=== PATIENT | female | born 1935 | race Caucasian/White ===

== ENCOUNTER → 2020-01-12 | Outpatient (CLI) | payer MEDICARE, BC ==
[2019-10-31 11:11] VITALS: BP 144/65
[~2020-01-12] MED LIST: ALPR0.5T PO; ALPR0.5T6 PO; ASPI-630 PO; ATOR10TA60 PO; BUPR150T11 PO; BUPR150T8 PO; CEFD300C PO; CELE100C PO; CITA10TA4 PO; CITA10TA8 PO; CYCL1DRO EACHEYE; DOCU100C28 PO; DONE23TA PO; LACT1CAP19 PO; LEVO112T49 PO; LEVO75TA5 PO; LIGH1DRO EACHEYE; LISI-338 PO; MAGN400O7 PO; METO25TA4 PO; METR500T PO; MICO14CR TP; MIRA50TA PO; MONT10TA49 PO; NORT25CA PO; NYST60PO TP; ONDA4TAB7 PO; POLY17PO28 PO; PROM25TA10 PO; PROP15DR EACHEYE; QUET50TA5 PO; SOLI10TA2 PO
== END ==
LOC: SURG 12:14 → SURGPAT 12:22 → EDSTATUS 01-15 12:00
PROVIDERS: ATTEND Internal Medicine Gastroenterology
DX: Z01.818 Encounter for other preprocedural examination (principal); Z11.59 Encounter for screening for other viral diseases; R10.84 Generalized abdominal pain
CPT/HCPCS: 36415; 87635

== ENCOUNTER → 2020-01-15 | Day surgery (SDC) | payer MEDICARE, BC ==
[~2020-01-15] MED LIST changes: +IV RINGERS,LACTATED 1000ML 1,000 ML IV SCH; +PROPOFOL 10 MG/ML (20ML) VIAL. IV ONE
[2020-01-15 13:09] VITALS: BP 146/69
--- NOTE | 2020-01-15 13:45 | HP ---
ADMIT DATE: UPDATED HISTORY AND PHYSICAL REASONS FOR EVALUATION: Abdominal pain and diarrhea. HISTORY OF PRESENT ILLNESS: An 84-year-old female with past medical history which is significant for diverticulosis, anxiety, myocardial infarction, hypothyroidism, is seen with persistent abdominal pain involving the entire abdomen associated with difficulties with evacuation. CT scan did reveal diverticular disease and possible stricture. MiraLax has been unhelpful but milk of magnesia has improved with her strain. With continued issues since completing the antibiotic, she requests additional evaluation. PAST MEDICAL HISTORY: Diverticulitis, palpitations, myocardial infarction, hypothyroidism, and skin cancer. ALLERGIES: SULFA. MEDICATIONS: Xanax, aspirin, atorvastatin, Wellbutrin, cefdinir, Celexa, cyclosporine eyedrops, benazepril, lactobacillus, levothyroxine, lisinopril, magnesium, metronidazole, nystatin, and Zofran. FAMILY AND SOCIAL HISTORY: Significant for breast cancer with her mother, myocardial infarction with her father. PAST SURGICAL HISTORY: She has joint replacement, breast surgery, coronary artery bypass grafting, hysterectomy, ____ surgery, and eye surgery. REVIEW OF SYSTEMS: Per records. PHYSICAL EXAMINATION: GENERAL: Reveals a well-nourished, well-developed female, who is alert, cooperative, in mild distress. VITAL SIGNS: Temperature 97.7, pulse 94, respirations 22. LUNGS: Clear. CARDIOVASCULAR: Reveals S1 and S2 without S3, S4, or appreciable murmur. ABDOMEN: Reveals a soft abdomen, normal bowel sounds, without appreciable hepatosplenomegaly. EXTREMITIES: Reveals no cyanosis, clubbing, or edema. IMPRESSION AND PLAN: Abdominal pain with diarrhea and diverticular disease. Differential includes inflammatory bowel disease, ischemic colitis with stricture, diverticular stricture, and colon cancer. Therefore, I recommend a colonoscopy to further assess. Risks and benefits have been discussed with the patient including risk of hemorrhage and perforation and she is willing to proceed. If this is unhelpful, then consideration to Colorectal Surgery evaluation for possible rectocele and pelvic floor dyssynergia with a sitz marker study may be pursued. TI ZELAYA MD DR: CAITY/yossi JOB#: [id number] / [id number]
--- NOTE | 2020-01-19 13:07 | PATHOLOGY ---
[facility] Accession Number: [id number] . 01 Material submitted: . colon - RANDOM COLON BX . 01 Clinical history: . Diarrhea . 02 Diagnosis: Colonic mucosa, random colon biopsies: - No significant pathologic abnormalities. (JPM:ozzy; 01/19/2020) S 01/19/2020 0929 Local . 02 Comment: Sections of the random colon biopsy reveal multiple segments of colonic mucosa containing a few mucosal-associated lymphoid aggregates. There is no evidence of a chronic destructive colitis, lymphocytic colitis, or collagenous colitis. (JPM:ozzy; 01/19/2020) . 02 Electronically signed: . Víctor Chong MD, Pathologist NPI- [id number] . 01 Gross description: . The specimen is received in formalin, labeled "Vangie, Melly, random colon BX" and consists of multiple fragments of pruitt tissue measuring 1.7 x 0.7 x 0.2 cm in aggregate which is entirely submitted in A1. ([facility]; 01/16/2020) JFQ/JFQ 01/16/2020 1448 Local . 02 Pathologist provided ICD-10: R19.7 . 02 CPT . 434706 Specimen Comment: A courtesy copy of this report has been sent to [phone], [phone] Specimen Comment: [id number] Specimen Comment: Report sent to / DR MOTA Specimen Comment: A duplicate report has been generated due to demographic updates. Performed at: 01 [facility] [address] [address], [place] [id number] MD Salbador Pruitt MD Phone: [phone] Performed at: 02 [facility] [address] [place], [place] [id number] MD Víctor Chong MD Phone: [phone]
== END ==
LOC: SURG 10:56
PROVIDERS: ATTEND Internal Medicine Gastroenterology
DX: K52.9 Noninfective gastroenteritis and colitis, unspecified (principal); K57.30 Diverticulosis of large intestine without perforation or abscess without bleeding; K64.0 First degree hemorrhoids; I25.2 Old myocardial infarction; E03.9 Hypothyroidism, unspecified; Z85.828 Personal history of other malignant neoplasm of skin; Z88.1 Allergy status to other antibiotic agents; Z95.1 Presence of aortocoronary bypass graft; Z90.710 Acquired absence of both cervix and uterus
CPT/HCPCS: 45380; 88305; J2704

== ENCOUNTER 2020-06-04 13:39 | Inpatient (IN) | payer MEDICARE, BC ==
[~2020-06-04] VITALS: Ht 162.6 cm; Wt 110.0 kg
[~2020-06-04 13:39] MED LIST changes: -IV RINGERS,LACTATED 1000ML 1,000 ML IV SCH; -PROPOFOL 10 MG/ML (20ML) VIAL. IV ONE
[2020-06-04] MEDS ORDERED: DILTIAZEM HCL 125 MG in IV NORMAL SALINE 100ML 100 ML IV ONE (14:00)
[2020-06-04] MEDS ORDERED: dilTIAZem IV PUSH 25 MG/5 ML VIAL IVP ONE (14:00)
--- NOTE | 2020-06-04 14:01 | PHYS DOC ---
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 She was in her doctor's office when she suddenly had chest pain and palpitations. They report her heart rate was in the 170s. They report normal blood pressure. Upon EMS arrival the patient's pain had improved. EMS brings her in for evaluation. Currently her pain is almost entirely resolved and she is resting comfortably in examination room. She has a history of chronic dementia and has some difficulty answering about her medical history. Past medical history: Anxiety depression constipation hyperlipidemia coronary artery disease hypothyroidism Past medical history: She has a history of a cholecystectomy and CABG and reports knee surgery. Review of systems is negative for abdominal pain diaphoresis vomiting fevers chills or headache. All other review of systems negative. ED course: 84-year-old female presenting with chest pain found to be in A. fib with RVR. Diltiazem bolus and drip ordered. This is new A. fib for the patient, no record of her having history of A. fib in her chart. She is not on blood thinners. Patient converted after diltiazem bolus. She still has a mild amount of chest pain. We will admit her for serial troponins and cardiac consultation. Heart Score: HEART Score for Chest Pain: HEART Score for Chest Pain Response (Comments) Value History Moderately Suspicious 1 ECG Nonspecific Repolarizatio 1 Age > 65 2 Risk Factors 1 or 2 Risk Factors 1 Troponin < Normal Limit 0 Total 5 Risk Factors: Risk Factors: DM, Current or recent (<one month) smoker, HTN, HLP, family history of CAD, obesity. Risk Scores: Score 0 - 3: 2.5% MACE over next 6 weeks - Discharge Home Score 4 - 6: 20.3% MACE over next 6 weeks - Admit for Clinical Observation Score 7 - 10: 72.7% MACE over next 6 weeks - Early Invasive Strategies Current Medications: Current Medications Medications (Trade) Dose Ordered Sig/Carlos Start Time Stop Time Status Last Admin Dose Admin Diltiazem HCl (Cardizem Iv Push) 10 mg 1X ONCE 06/04/20 14:00 06/04/20 14:01 Diltiazem HCl 125 mg/Sodium Chloride 125 ml @ 5 mls/hr 1X ONCE 06/04/20 14:00 06/05/20 14:59 Allergies: Allergies: Allergies Coded Allergies Type Severity Reaction Last Updated Verified Sulfa (Sulfonamide Antibiotics) Allergy Mild Rash 01/15/20 Yes Physical Exam: PE: Constitutional: Well developed, well nourished, no acute distress, non-toxic appearance. [] HENT: Normocephalic, atraumatic, bilateral external ears normal, oropharynx moist, no oral exudates, nose normal. [] Eyes: PERRLA, EOMI, conjunctiva normal, no discharge. [] Neck: Normal range of motion, no tenderness, supple, no stridor. [] Cardiovascular: Tachycardic with an irregularly irregular rhythm. No murmur. Lungs & Thorax: Bilateral breath sounds clear to auscultation [] Abdomen: Bowel sounds normal, soft, no tenderness, no masses, no pulsatile masses. [] Skin: Warm, dry, no erythema, no rash. [] Back: No tenderness, no CVA tenderness. [] Extremities: No tenderness, no cyanosis, no clubbing, ROM intact, no edema. [] Neurologic: Alert and oriented X 3, normal motor function, normal sensory function, no focal deficits noted. [] Psychologic: Affect normal, judgement normal, mood normal. [] EKG: EKG: [] Radiology/Procedures: Radiology/Procedures: [] Course & Med Decision Making: Course & Med Decision Making Pertinent Labs and Imaging studies reviewed. (See chart for details) [] Dragon Disclaimer: Dragon Disclaimer: This electronic medical record was generated, in whole or in part, using a voice recognition dictation system. Departure Departure Impression: Primary Impression: Atrial fibrillation with RVR Additional Impression: Chest pain Disposition: ADMITTED INPATIENT Condition: STABLE Referrals: DEREK MOTA MD (PCP) Justicifation of Admission Dx: Justifications for Admission: Justification of Admission Dx: Yes Comments: A. fib RVR NILES SIMON MD Jun 04, 2020 14:01
[2020-06-04 14:10] LABS: BASO # 0.1 x10^3/uL (0.0-0.2); BASO % 1 % (0-3); EOS # 0.2 x10^3/uL (0.0-0.7); EOS % 2 % (0-3); HEMATOCRIT 46.4 % (36.0-47.0); HEMOGLOBIN 15.9 g/dL (12.0-15.5); LYMPH # 2.1 x10^3/uL (1.0-4.8); LYMPH % 30 % (24-48); MEAN CORPUSCULAR HEMOGLOBIN 33 pg (25-35); MEAN CORPUSCULAR HGB CONC 34 g/dL (31-37); MEAN CORPUSCULAR VOLUME 95 fL (79-100); MONO # 0.5 x10^3/uL (0.0-1.1); MONO % 8 % (0-9); NEUT % 59 % (31-73); PLATELET COUNT 209 x10^3/uL (140-400); RED BLOOD COUNT 4.88 x10^6/uL (3.50-5.40); RED CELL DISTRIBUTION WIDTH 13.6 % (11.5-14.5); WHITE BLOOD COUNT 6.9 x10^3/uL (4.0-11.0)
--- NOTE | 2020-06-04 14:15 | RAD ---
CHEST AP ONLY 06/04/2020 1:42 PM INDICATION: Chest pain COMPARISON: 06/12/2014 TECHNIQUE: Portable frontal view of the chest is provided. FINDINGS: The cardiomediastinal silhouette is within normal limits. Lungs are clear. Median sternotomy changes are present. There are no significant pleural effusions. There is no pulmonary vascular congestion. No pneumothorax. No suspicious osseous abnormality. IMPRESSION: There is no acute cardiopulmonary process. Electronically signed by: Margie Parra MD (06/04/2020 2:12 PM) [id number]
[2020-06-04 14:18] LABS: PROTHROMBIN TIME PATIENT 12.2 SEC (11.7-14.0)
[2020-06-04 14:31] LABS: CALCIUM 9.5 mg/dL (8.5-10.1); CREATININE 0.9 mg/dL (0.6-1.0); GFR 59.8
[2020-06-04 14:37] LABS: ALBUMIN 3.8 g/dL (3.4-5.0); DIRECT BILIRUBIN 0.1 mg/dL (0.0-0.2); TOTAL BILIRUBIN 0.5 mg/dL (0.2-1.0); TOTAL PROTEIN 7.1 g/dL (6.4-8.2)
[2020-06-04] MEDS ORDERED: POTASSIUM CHLORIDE 10MEQ 100 ML IV PRN ×2 (16:30)
[2020-06-04] MEDS ORDERED: DOCUSATE SODIUM 100 MG CAPSULE. PO PRN (16:30)
[2020-06-04] MEDS ORDERED: IV NORMAL SALINE 1000ML BAG 1,000 ML IV ONE (16:30)
[2020-06-04] MEDS ORDERED: DEXTROSE 50% 25 GM / 50ML DISP.SYRIN. IV PRN (16:30)
[2020-06-04] MEDS ORDERED: SENNOSIDES 8.6 MG TABLET PO PRN (16:30)
[2020-06-04] MEDS ORDERED: NITROGLYCERIN SUBLINGUAL 0.4 MG BOTTLE OF 25. SL PRN (16:30)
[2020-06-04] MEDS ORDERED: ONDANSETRON PF 4 MG/2 ML VIAL. IVP PRN (16:30)
[2020-06-04] MEDS ORDERED: POTASSIUM CHLORIDE 20 MEQ TABLET.ER. PO PRN (16:30)
[2020-06-04] MEDS ORDERED: MAGNESIUM SULFATE 2GM 50 ML IV PRN (16:30)
--- NOTE | 2020-06-04 16:36 | PDOC1 ---
History and Physical Date of Service: DOS: DATE: 06/04/20 TIME: 16:22 Chief Complaint: Chief Complain: Chest discomfort and palpitations History of Present Illness: HPI: 84-year-old female with past medical history of CABG, dementia, constipation, hypothyroidism, hypertension, dyslipidemia who presents to the department via EMS from her doctor's office when she suddenly had chest pain or palpitations. EMS did report her heart rate in the 170s. With normal blood pressure. Patient states over the past couple days she has been having constipation and some diarrhea. Before arrival she did have some loose stools and she did take stool softeners during this time. Patient does have some difficulty remembering why she was in the hospital in October and also in January. She does note that she does see a storage receipt poster for her heart issues and she had heart surgery. Denies fevers, shortness of breath, dysuria, syncope, dizziness, lightheadedness, or bloody stools ED course: 84-year-old female presenting with chest pain found to be in A. fib with RVR. Diltiazem bolus and drip ordered. This is new A. fib for the patient, no record of her having history of A. fib in her chart. She is not on blood thinners. 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 Allergies: Allergies: Coded Allergies: Sulfa (Sulfonamide Antibiotics) (Verified Allergy, Mild, Rash, 01/15/20) Family History: Family History: Reviewed and none reported Social History: Social History: Smoking Status: Never Smoker Alcohol Use: None Drug Use: None Current Medications: Current Medications Current Medications Diltiazem HCl (Cardizem Iv Push) 10 mg 1X ONCE IVP Last administered on 06/04/20at 14:10; Start 06/04/20 at 14:00; Stop 06/04/20 at 14:01; Status DC Diltiazem HCl 125 mg/Sodium Chloride 125 ml @ 5 mls/hr 1X ONCE IV ; Start 06/04/20 at 14:00; Stop 06/05/20 at 14:59 Nitroglycerin (Nitrostat) 0.4 mg PRN Q5MIN PRN SL CHEST PAIN; Start 06/04/20 at 16:30; Status UNV Sennosides (Senna) 17.2 mg PRN BID PRN PO CONSTIPATION; Start 06/04/20 at 16:30; Status UNV Docusate Sodium (Colace) 100 mg PRN DAILY PRN PO HARD STOOLS; Start 06/04/20 at 16:30; Status UNV Ondansetron HCl (Zofran) 4 mg PRN Q6HRS PRN IVP NAUSEA/VOMITING; Start 06/04/20 at 16:30; Status UNV Potassium Chloride (Klor-Con) 40 meq 1X PRN PO PER PROTOCOL; Start 06/04/20 at 16:30; Status UNV Magnesium Oxide (Magnesium Oxide) 400 mg BID PO ; Start 06/04/20 at 21:00; Stop 06/06/20 at 09:01; Status UNV Potassium Chloride/Water 100 ml @ 100 mls/hr Q1H IV ; Start 06/04/20 at 16:30; Stop 06/04/20 at 20:29; Status UNV Magnesium Sulfate 50 ml @ 25 mls/hr Q24H IV ; Start 06/04/20 at 16:30; Stop 05/12 03/29 at 18:29; Status UNV Potassium Chloride/Water 100 ml @ 100 mls/hr Q1H PRN IV low k; Start 06/04/20 at 16:30; Status UNV Aspirin (Ecotrin) 81 mg DAILYWBKFT PO ; Start 06/05/20 at 08:00; Status UNV Dextrose (Dextrose 50%-Water Syringe) 12.5 gm PRN Q15MIN PRN IV SEE COMMENTS; Start 06/04/20 at 16:30; Status UNV Active Scripts Active Levothyroxine Sodium 112 Mcg Tablet 1 Tab PO DAILY Zofran (Ondansetron Hcl) 4 Mg Tablet 1 Tab PO Q6HRS Cefdinir 300 Mg Capsule 1 Cap PO BID 3 Days Flagyl (Metronidazole) 500 Mg Tablet 500 Mg PO TID 4 Days Antifungal Cream (Miconazole Nitrate) 14 Gm Cream..g. 1 Taylor TP BID 10 Days Culturelle (Lactobacillus Rhamnosus Gg) 1 Each Cap.sprink 1 Cap PO BID 14 Days Polyethylene Glycol 3350 17 Gm Powd.pack 17 Gm PO QHS 30 Days Reported Systane 0.3-0.4% Eye Drops (Propylene Glycol/Peg 400) 15 Ml Drops 1 Drop EACHEYE QID Retaine Mgd Eye Drops (Light Mineral Oil/Min Oil/Pf) 1 Each Droperette 1 Drop EACHEYE QID 30 Days Nystop (Nystatin) 60 Gm Powder 60 Gm TP BID Restasis (Cyclosporine) 1 Each Droperette 1 Drop EACHEYE BID Lisinopril 5 Mg Tablet 1 Tab PO DAILY Aspirin 81 Mg Tab.chew 1 Tab PO DAILY Atorvastatin Calcium 10 Mg Tablet 10 Mg PO HS Celebrex (Celecoxib) 100 Mg Capsule 1 Cap PO BID Donepezil Hcl 23 Mg Tablet 1 Tab PO QHS 30 Days Wellbutrin Sr (Bupropion Hcl) 150 Mg Tablet.er 1 Tab PO BID Seroquel (Quetiapine Fumarate) 50 Mg Tablet 1 Tab PO QHS Seroquel (Quetiapine Fumarate) 50 Mg Tablet 1 Tab PO QHS Xanax (Alprazolam) 0.5 Mg Tablet 1 Tab PO TID Milk Of Magnesia (Magnesium Hydroxide) 400 Mg/5 Ml Oral.susp 400 Mg PO DAILY Docusate Sodium 100 Mg Capsule 2 Cap PO DAILY Myrbetriq (Mirabegron) 50 Mg Tab.er.24h 50 Mg PO DAILY ROS: Review of Systems Review of System REVIEW OF SYSTEMS: GENERAL: Denies weakness SKIN: No bruising, hair changes or rashes. EYES: No blurred, double or loss of vision. NOSE AND THROAT: No history of nosebleeds, hoarseness or sore throat. HEART: No history of palpitations, chest pain or shortness of breath on exertion. LUNGS: Denies cough, hemoptysis, wheezing or shortness of breath. GASTROINTESTINAL: Denies changes in appetite, nausea, vomiting, diarrhea or constipation. GENITOURINARY: No history of frequency, urgency, hesitancy or nocturia. NEUROLOGIC: Denies history of numbness, tingling, or tremor. PSYCHIATRIC: No history of panic, anxiety or depression. ENDOCRINE: No history of heat or cold intolerance, polyuria or polydipsia. EXTREMITIES: Denies joint pain, pain on walking or stiffness. Physical Exam: Vital Signs: Vital Signs Date Time Temp Pulse Resp B/P (MAP) Pulse Ox O2 Delivery O2 Flow Rate FiO2 06/04/20 15:15 70 107/55 (72) 94 Room Air 06/04/20 13:42 98.1 16 98.1 Physcial Exam: GEN: No apparent distress. Alert and oriented HEENT: Normal cephalic, atraumatic, external auditory canals are patent EYES: Extraocular muscles are intact, pupil are equally round and reactive to light and accommodation MUSCULOSKELETAL: Well developed , well nourished, good range of motion ENDOCRINE: No thyromegaly was palpated LYMPHATICS: No cervical chain or axillary nodes were noted HEMATOPOIETIC: No bruising NECK: Supple, no JVD, no thyromegaly was noted LUNGS: Clear to auscultation in all lung hernandez without rhonchi or wheezing HEART: RRR, S!, S2 present. Peripheral pulses intact, no obvious murmurs noted ABDOMEN: Soft, nontender. Positive bowel sounds, no organomegaly, normal bowel sounds EXTREMITIES: Without clubbing, cyanosis, or edema. Pedal pulses intact. Negative Homans sign NEUROLOGIC: Normal speech and tone. A&O x 3, moves all extremities, no obvious focal deficits PSYCHIATRIC: Normal affect, normal mood. Stable SKIN: No ulcerations or rashes, good skin turgor, no jaundice VASCULAR: Good capillary refill, neurovascular bundle appears to be intact Labs: Labs: Laboratory Tests Test 06/04/20 14:02 White Blood Count 6.9 x10^3/uL (4.0-11.0) Red Blood Count 4.88 x10^6/uL (3.50-5.40) Hemoglobin 15.9 g/dL (12.0-15.5) Hematocrit 46.4 % (36.0-47.0) Mean Corpuscular Volume 95 fL (79-100) Mean Corpuscular Hemoglobin 33 pg (25-35) Mean Corpuscular Hemoglobin Concent 34 g/dL (31-37) Red Cell Distribution Width 13.6 % (11.5-14.5) Platelet Count 209 x10^3/uL (140-400) Neutrophils (%) (Auto) 59 % (31-73) Lymphocytes (%) (Auto) 30 % (24-48) Monocytes (%) (Auto) 8 % (0-9) Eosinophils (%) (Auto) 2 % (0-3) Basophils (%) (Auto) 1 % (0-3) Neutrophils # (Auto) 4.0 x10^3/uL (1.8-7.7) Lymphocytes # (Auto) 2.1 x10^3/uL (1.0-4.8) Monocytes # (Auto) 0.5 x10^3/uL (0.0-1.1) Eosinophils # (Auto) 0.2 x10^3/uL (0.0-0.7) Basophils # (Auto) 0.1 x10^3/uL (0.0-0.2) Prothrombin Time 12.2 SEC (11.7-14.0) Prothromb Time International Ratio 0.9 (0.8-1.1) Activated Partial Thromboplast Time 22 SEC (24-38) Sodium Level 135 mmol/L (136-145) Potassium Level 5.0 mmol/L (3.5-5.1) Chloride Level 101 mmol/L (98-107) Carbon Dioxide Level 24 mmol/L (21-32) Anion Gap 10 (6-14) Blood Urea Nitrogen 16 mg/dL (7-20) Creatinine 0.9 mg/dL (0.6-1.0) Estimated GFR (Cockcroft-Gault) 59.8 Glucose Level 104 mg/dL (70-99) Calcium Level 9.5 mg/dL (8.5-10.1) Total Bilirubin 0.5 mg/dL (0.2-1.0) Direct Bilirubin 0.1 mg/dL (0.0-0.2) Aspartate Amino Transf (AST/SGOT) 24 U/L (15-37) Alanine Aminotransferase (ALT/SGPT) 27 U/L (14-59) Alkaline Phosphatase 60 U/L (46-116) Troponin I Quantitative < 0.017 ng/mL (0.000-0.055) UF-Bwj-S-Type Natriuretic Peptide 145 pg/mL (0-449) Total Protein 7.1 g/dL (6.4-8.2) Albumin 3.8 g/dL (3.4-5.0) Lipase 183 U/L (73-393) Laboratory Tests Test 06/04/20 14:02 White Blood Count 6.9 x10^3/uL (4.0-11.0) Red Blood Count 4.88 x10^6/uL (3.50-5.40) Hemoglobin 15.9 g/dL (12.0-15.5) Hematocrit 46.4 % (36.0-47.0) Mean Corpuscular Volume 95 fL (79-100) Mean Corpuscular Hemoglobin 33 pg (25-35) Mean Corpuscular Hemoglobin Concent 34 g/dL (31-37) Red Cell Distribution Width 13.6 % (11.5-14.5) Platelet Count 209 x10^3/uL (140-400) Neutrophils (%) (Auto) 59 % (31-73) Lymphocytes (%) (Auto) 30 % (24-48) Monocytes (%) (Auto) 8 % (0-9) Eosinophils (%) (Auto) 2 % (0-3) Basophils (%) (Auto) 1 % (0-3) Neutrophils # (Auto) 4.0 x10^3/uL (1.8-7.7) Lymphocytes # (Auto) 2.1 x10^3/uL (1.0-4.8) Monocytes # (Auto) 0.5 x10^3/uL (0.0-1.1) Eosinophils # (Auto) 0.2 x10^3/uL (0.0-0.7) Basophils # (Auto) 0.1 x10^3/uL (0.0-0.2) Prothrombin Time 12.2 SEC (11.7-14.0) Prothromb Time International Ratio 0.9 (0.8-1.1) Activated Partial Thromboplast Time 22 SEC (24-38) Sodium Level 135 mmol/L (136-145) Potassium Level 5.0 mmol/L (3.5-5.1) Chloride Level 101 mmol/L (98-107) Carbon Dioxide Level 24 mmol/L (21-32) Anion Gap 10 (6-14) Blood Urea Nitrogen 16 mg/dL (7-20) Creatinine 0.9 mg/dL (0.6-1.0) Estimated GFR (Cockcroft-Gault) 59.8 Glucose Level 104 mg/dL (70-99) Calcium Level 9.5 mg/dL (8.5-10.1) Total Bilirubin 0.5 mg/dL (0.2-1.0) Direct Bilirubin 0.1 mg/dL (0.0-0.2) Aspartate Amino Transf (AST/SGOT) 24 U/L (15-37) Alanine Aminotransferase (ALT/SGPT) 27 U/L (14-59) Alkaline Phosphatase 60 U/L (46-116) Troponin I Quantitative < 0.017 ng/mL (0.000-0.055) EY-Pqi-A-Type Natriuretic Peptide 145 pg/mL (0-449) Total Protein 7.1 g/dL (6.4-8.2) Albumin 3.8 g/dL (3.4-5.0) Lipase 183 U/L (73-393) Images: Images CXR No acute cardiopulmonary process Assessment/Plan Assessment/Plan Acute chest pain due to A. fib RVR New onset A. fib RVR Acute abdominal pain due to constipation/diarrhea Acute electrolyte derangementhyponatremia and hyperkalemia Reactive erythrocytosis likely due to mild Dehydration History of CABG Hypothyroidism Morbid obesity with comorbidities Hypertension Dyslipidemia Admit to medicine for telemetry monitoring Cardiology consult Continue diltiazem drip to titrate heart rate to 100-110 Restart home medications Pending echocardiogram Pending KUB for constipation Start bowel regimen Gentle IV fluid replacement IV electrolyte replacement protocol Lovenox for DVT prophylaxis Cardiac diet Full code Discussed with RN and SW Disposition pending cardiac evaluation Surrogate decision maker is Francoise Palomo Justifications for Admission Other Justification afib rvr JAMAAL GARNER MD Jun 04, 2020 16:36
--- NOTE | 2020-06-04 17:06 | RAD ---
AP view of the abdomen Clinical indications: Constipation. FINDINGS: There is mild fecal retention throughout the colon. No significant dilatation of the colon is evident. No small bowel dilatation is evident. No significant air filled gastric distention is seen. Right hip arthroplasty is evident. Calcified phleboliths are seen within both sides of the anatomic pelvis. IMPRESSION: No acute abnormality. Electronically signed by: Zackery Peralta MD (06/04/2020 5:03 PM) [id number]
[2020-06-04] MEDS: ENOXAPARIN 40 MG/0.4 ML SYRINGE. SQ SCH (17:56)
[2020-06-04 18:45] VITALS: BP 115/58
--- NOTE | 2020-06-04 19:47 | NUR ---
Admit to orth room 200 from ED prior to shift change. A/O x4. Very hard of hearing. One hearing aide at bedside in blue denture cup. Orientated to room and call light. Reviewed POC. Verbalized understanding. Spoke to daughter, Francoise, on patient's cell phone. Resting in bed. Watching TV with closed captions. Call light at hand.
[2020-06-04] MEDS ORDERED: MAGNESIUM OXIDE 400 MG TABLET PO PRN (21:00)
[2020-06-04] MEDS: POLYETHYLENE GLYCOL 3350 17 GM PACKET. PO SCH (21:00)
[2020-06-04] MEDS: QUEtiapine 50 MG TAB.ER.24H. PO SCH (21:00)
[2020-06-04] MEDS: buPROPion SR 150 MG TABLET.SA PO SCH (22:02)
[2020-06-04] MEDS: LACTOBACILLUS RHAMNOSUS GG 1 CAPSULE. PO SCH (22:02)
[2020-06-04] MEDS: ATORVASTATIN CALCIUM 10 MG TABLET. PO SCH (22:02)
[2020-06-04 22:38] VITALS: BP 122/60
[2020-06-05] MEDS: QUEtiapine 50 MG TAB.ER.24H. PO SCH ×2 (00:17→21:01)
[2020-06-05 02:32] VITALS: BP 138/66
[2020-06-05 04:41] LABS: BASO # 0.1 x10^3/uL (0.0-0.2); BASO % 1 % (0-3); EOS # 0.2 x10^3/uL (0.0-0.7); EOS % 2 % (0-3); HEMATOCRIT 40.4 % (36.0-47.0); HEMOGLOBIN 13.8 g/dL (12.0-15.5); LYMPH % 31 % (24-48); MEAN CORPUSCULAR HEMOGLOBIN 32 pg (25-35); MEAN CORPUSCULAR HGB CONC 34 g/dL (31-37); MEAN CORPUSCULAR VOLUME 95 fL (79-100); MONO # 0.5 x10^3/uL (0.0-1.1); MONO % 8 % (0-9); NEUT # 3.7 x10^3/uL (1.8-7.7); NEUT % 57 % (31-73); PLATELET COUNT 186 x10^3/uL (140-400); RED BLOOD COUNT 4.27 x10^6/uL (3.50-5.40); RED CELL DISTRIBUTION WIDTH 13.7 % (11.5-14.5); WHITE BLOOD COUNT 6.5 x10^3/uL (4.0-11.0)
[2020-06-05 05:02] LABS: CALCIUM 8.7 mg/dL (8.5-10.1); CREATININE 0.9 mg/dL (0.6-1.0); GFR 59.8; MAGNESIUM 1.7 mg/dL (1.8-2.4); PHOSPHORUS 4.1 mg/dL (2.6-4.7)
[2020-06-05 07:00] VITALS: BP 136/61
[2020-06-05] MEDS: ASPIRIN ENTERIC COATED 81 MG TABLET.DR. PO SCH (08:28)
[2020-06-05] MEDS: buPROPion SR 150 MG TABLET.SA PO SCH ×2 (08:28→21:01)
[2020-06-05] MEDS: LACTOBACILLUS RHAMNOSUS GG 1 CAPSULE. PO SCH ×2 (08:28→21:01)
[2020-06-05] MEDS: LEVOTHYROXINE 112 MCG TABLET PO SCH (08:28)
[2020-06-05] MEDS: LISINOPRIL 5 MG TABLET. PO SCH (08:29)
[2020-06-05] MEDS: DOCUSATE SODIUM 100 MG CAPSULE. PO SCH (08:29)
[2020-06-05] MEDS: NON FORMULARY ITEM (Mirabegron (Myrbetriq) 50 MG) PO SCH (09:00)
[2020-06-05] MEDS ORDERED: FLU VACC QS 2020-21(6MOS+)/PF 0.5 ML SYRINGE. VAX IM ONE (09:00)
[2020-06-05 11:00] VITALS: BP 132/59
--- NOTE | 2020-06-05 12:35 | PDOC2 ---
CONSULT Date of Consult Date of Consult DATE: 06/05/20 TIME: 12:30 Reason for Consult Reason for Consult: Rapid atrial fibrillation Referring Physician Referring Physician: Dr. Watkins Identification/Chief Complaint Chief Complaint Chest pain and rapid heart rate Source Source: Chart review, Patient History of Present Illness Reason for Visit: The patient is an 84-year-old female with a history of hypertension and bypass surgery. She developed episodes of chest pressure and was brought to the emergency room. She was found to be in rapid atrial fibrillation has been treated with IV Cardizem. She is converted to a sinus rhythm. She is feeling much better today. Troponin x1 is normal. Chest x-ray shows no acute processes. The patient is resting reasonably comfortably in bed now on IV Cardizem. Past Medical History Cardiovascular: CAD, HTN, Hyperlipidemia Past Surgical History Past Surgical History: Cholecystectomy, CABG Family History Family History: Family History Unknown Social History No ALCOHOL: none Drugs: None Lives: with Family Current Problem List Problem List Problems Medical Problems: (1) Atrial fibrillation with RVR Status: Acute (2) Chest pain Status: Acute Current Medications Current Medications Current Medications Diltiazem HCl (Cardizem Iv Push) 10 mg 1X ONCE IVP Last administered on 06/04/20at 14:10; Start 06/04/20 at 14:00; Stop 06/04/20 at 14:01; Status DC Diltiazem HCl 125 mg/Sodium Chloride 125 ml @ 5 mls/hr 1X ONCE IV ; Start 06/04/20 at 14:00; Stop 06/05/20 at 14:59 Nitroglycerin (Nitrostat) 0.4 mg PRN Q5MIN PRN SL CHEST PAIN; Start 06/04/20 at 16:30 Sennosides (Senna) 17.2 mg PRN BID PRN PO CONSTIPATION; Start 06/04/20 at 16:30 Docusate Sodium (Colace) 100 mg PRN DAILY PRN PO HARD STOOLS; Start 06/04/20 at 16:30 Ondansetron HCl (Zofran) 4 mg PRN Q6HRS PRN IVP NAUSEA/VOMITING; Start 06/04/20 at 16:30 Potassium Chloride (Klor-Con) 40 meq 1X PRN PO PER PROTOCOL; Start 06/04/20 at 16:30 Magnesium Oxide (Magnesium Oxide) 400 mg PRN BID PRN PO see comments; Start 06/04/20 at 21:00 Potassium Chloride/Water 100 ml @ 100 mls/hr PRN Q1HR PRN IV see comments; Start 06/04/20 at 16:30 Magnesium Sulfate 50 ml @ 25 mls/hr PRN DAILY PRN IV SEE COMMENTS Last administered on 06/05/20at 05:45; Start 06/04/20 at 16:30 Potassium Chloride/Water 100 ml @ 100 mls/hr PRN Q1HR PRN IV low k; Start 06/04/20 at 16:30 Aspirin (Ecotrin) 81 mg DAILYWBKFT PO Last administered on 06/05/20at 08:28; Start 06/05/20 at 08:00 Dextrose (Dextrose 50%-Water Syringe) 12.5 gm PRN Q15MIN PRN IV SEE COMMENTS; Start 06/04/20 at 16:30 Sodium Chloride 1,000 ml @ 125 mls/hr 1X ONCE IV Last administered on 06/04/20at 17:57; Start 06/04/20 at 16:30; Stop 06/05/20 at 00:29; Status DC Enoxaparin Sodium (Lovenox 40mg Syringe) 40 mg Q24H SQ Last administered on 06/04/20at 17:56; Start 06/04/20 at 17:00 Atorvastatin Calcium (Lipitor) 10 mg HS PO Last administered on 06/04/20at 22:02; Start 06/04/20 at 21:00 Bupropion HCl (Wellbutrin Sr) 150 mg BID PO Last administered on 06/05/20at 08:28; Start 06/04/20 at 21:00 Docusate Sodium (Colace) 200 mg DAILY PO Last administered on 06/05/20at 08:29; Start 06/05/20 at 09:00 Lactobacillus Rhamnosus (Culturelle) 1 cap BID PO Last administered on 06/05/20at 08:28; Start 06/04/20 at 21:00 Levothyroxine Sodium (Synthroid) 112 mcg DAILY06 PO Last administered on 06/05/20at 08:28; Start 06/05/20 at 09:00 Lisinopril (Prinivil) 5 mg DAILY PO Last administered on 06/05/20at 08:29; Start 06/05/20 at 09:00 Polyethylene Glycol (miraLAX PACKET) 17 gm QHS PO ; Start 06/04/20 at 21:00 Non-Formulary Medication (Mirabegron (Myrbetriq)) 50 mg DAILY PO ; Start 06/05/20 at 09:00; Status UNV Quetiapine Fumarate (SEROquel XR) 50 mg QHS PO Last administered on 06/05/20at 00:17; Start 06/04/20 at 21:00 Influenza Virus Vaccine Quadrival (Fluzone Quad Syringe) 0.5 ml ONCE ONCE VAX IM ; Start 06/05/20 at 09:00; Stop 06/05/20 at 09:01; Status DC Active Scripts Active Levothyroxine Sodium 112 Mcg Tablet 1 Tab PO DAILY Zofran (Ondansetron Hcl) 4 Mg Tablet 1 Tab PO Q6HRS Cefdinir 300 Mg Capsule 1 Cap PO BID 3 Days Flagyl (Metronidazole) 500 Mg Tablet 500 Mg PO TID 4 Days Antifungal Cream (Miconazole Nitrate) 14 Gm Cream..g. 1 Taylor TP BID 10 Days Culturelle (Lactobacillus Rhamnosus Gg) 1 Each Cap.sprink 1 Cap PO BID 14 Days Polyethylene Glycol 3350 17 Gm Powd.pack 17 Gm PO QHS 30 Days Reported Systane 0.3-0.4% Eye Drops (Propylene Glycol/Peg 400) 15 Ml Drops 1 Drop EACHEYE QID Retaine Mgd Eye Drops (Light Mineral Oil/Min Oil/Pf) 1 Each Droperette 1 Drop EACHEYE QID 30 Days Nystop (Nystatin) 60 Gm Powder 60 Gm TP BID Restasis (Cyclosporine) 1 Each Droperette 1 Drop EACHEYE BID Lisinopril 5 Mg Tablet 1 Tab PO DAILY Aspirin 81 Mg Tab.chew 1 Tab PO DAILY Atorvastatin Calcium 10 Mg Tablet 10 Mg PO HS Celebrex (Celecoxib) 100 Mg Capsule 1 Cap PO BID Donepezil Hcl 23 Mg Tablet 1 Tab PO QHS 30 Days Wellbutrin Sr (Bupropion Hcl) 150 Mg Tablet.er 1 Tab PO BID Seroquel (Quetiapine Fumarate) 50 Mg Tablet 1 Tab PO QHS Seroquel (Quetiapine Fumarate) 50 Mg Tablet 1 Tab PO QHS Xanax (Alprazolam) 0.5 Mg Tablet 1 Tab PO TID Milk Of Magnesia (Magnesium Hydroxide) 400 Mg/5 Ml Oral.susp 400 Mg PO DAILY Docusate Sodium 100 Mg Capsule 2 Cap PO DAILY Myrbetriq (Mirabegron) 50 Mg Tab.er.24h 50 Mg PO DAILY Allergies Allergies: Coded Allergies: Sulfa (Sulfonamide Antibiotics) (Verified Allergy, Intermediate, Rash, 06/05/20) ROS Respiratory: YES: SOB with excertion Cardiovascular: yes Chest Pain Physical Exam General: No acute distress HEENT: Atraumatic Lungs: Other (Slightly decreased breath sounds) Heart: Regular rate Abdomen: Normal bowel sounds Vitals VITALS Vital Signs Date Time Temp Pulse Resp B/P (MAP) Pulse Ox O2 Delivery O2 Flow Rate FiO2 06/05/20 11:00 98.2 67 20 132/59 (83) 93 Room Air 98.2 Labs Labs Laboratory Tests Test 06/04/20 14:02 06/05/20 04:30 White Blood Count 6.9 x10^3/uL (4.0-11.0) 6.5 x10^3/uL (4.0-11.0) Red Blood Count 4.88 x10^6/uL (3.50-5.40) 4.27 x10^6/uL (3.50-5.40) Hemoglobin 15.9 g/dL (12.0-15.5) 13.8 g/dL (12.0-15.5) Hematocrit 46.4 % (36.0-47.0) 40.4 % (36.0-47.0) Mean Corpuscular Volume 95 fL (79-100) 95 fL (79-100) Mean Corpuscular Hemoglobin 33 pg (25-35) 32 pg (25-35) Mean Corpuscular Hemoglobin Concent 34 g/dL (31-37) 34 g/dL (31-37) Red Cell Distribution Width 13.6 % (11.5-14.5) 13.7 % (11.5-14.5) Platelet Count 209 x10^3/uL (140-400) 186 x10^3/uL (140-400) Neutrophils (%) (Auto) 59 % (31-73) 57 % (31-73) Lymphocytes (%) (Auto) 30 % (24-48) 31 % (24-48) Monocytes (%) (Auto) 8 % (0-9) 8 % (0-9) Eosinophils (%) (Auto) 2 % (0-3) 2 % (0-3) Basophils (%) (Auto) 1 % (0-3) 1 % (0-3) Neutrophils # (Auto) 4.0 x10^3/uL (1.8-7.7) 3.7 x10^3/uL (1.8-7.7) Lymphocytes # (Auto) 2.1 x10^3/uL (1.0-4.8) 2.0 x10^3/uL (1.0-4.8) Monocytes # (Auto) 0.5 x10^3/uL (0.0-1.1) 0.5 x10^3/uL (0.0-1.1) Eosinophils # (Auto) 0.2 x10^3/uL (0.0-0.7) 0.2 x10^3/uL (0.0-0.7) Basophils # (Auto) 0.1 x10^3/uL (0.0-0.2) 0.1 x10^3/uL (0.0-0.2) Prothrombin Time 12.2 SEC (11.7-14.0) Prothromb Time International Ratio 0.9 (0.8-1.1) Activated Partial Thromboplast Time 22 SEC (24-38) Sodium Level 135 mmol/L (136-145) 139 mmol/L (136-145) Potassium Level 5.0 mmol/L (3.5-5.1) 4.0 mmol/L (3.5-5.1) Chloride Level 101 mmol/L (98-107) 105 mmol/L (98-107) Carbon Dioxide Level 24 mmol/L (21-32) 24 mmol/L (21-32) Anion Gap 10 (6-14) 10 (6-14) Blood Urea Nitrogen 16 mg/dL (7-20) 16 mg/dL (7-20) Creatinine 0.9 mg/dL (0.6-1.0) 0.9 mg/dL (0.6-1.0) Estimated GFR (Cockcroft-Gault) 59.8 59.8 Glucose Level 104 mg/dL (70-99) 96 mg/dL (70-99) Calcium Level 9.5 mg/dL (8.5-10.1) 8.7 mg/dL (8.5-10.1) Total Bilirubin 0.5 mg/dL (0.2-1.0) Direct Bilirubin 0.1 mg/dL (0.0-0.2) Aspartate Amino Transf (AST/SGOT) 24 U/L (15-37) Alanine Aminotransferase (ALT/SGPT) 27 U/L (14-59) Alkaline Phosphatase 60 U/L (46-116) Troponin I Quantitative < 0.017 ng/mL (0.000-0.055) EH-Rkt-F-Type Natriuretic Peptide 145 pg/mL (0-449) Total Protein 7.1 g/dL (6.4-8.2) Albumin 3.8 g/dL (3.4-5.0) Lipase 183 U/L (73-393) Thyroid Stimulating Hormone (TSH) 0.690 uIU/mL (0.358-3.74) Phosphorus Level 4.1 mg/dL (2.6-4.7) Magnesium Level 1.7 mg/dL (1.8-2.4) Laboratory Tests Test 06/04/20 14:02 06/05/20 04:30 White Blood Count 6.9 x10^3/uL (4.0-11.0) 6.5 x10^3/uL (4.0-11.0) Red Blood Count 4.88 x10^6/uL (3.50-5.40) 4.27 x10^6/uL (3.50-5.40) Hemoglobin 15.9 g/dL (12.0-15.5) 13.8 g/dL (12.0-15.5) Hematocrit 46.4 % (36.0-47.0) 40.4 % (36.0-47.0) Mean Corpuscular Volume 95 fL (79-100) 95 fL (79-100) Mean Corpuscular Hemoglobin 33 pg (25-35) 32 pg (25-35) Mean Corpuscular Hemoglobin Concent 34 g/dL (31-37) 34 g/dL (31-37) Red Cell Distribution Width 13.6 % (11.5-14.5) 13.7 % (11.5-14.5) Platelet Count 209 x10^3/uL (140-400) 186 x10^3/uL (140-400) Neutrophils (%) (Auto) 59 % (31-73) 57 % (31-73) Lymphocytes (%) (Auto) 30 % (24-48) 31 % (24-48) Monocytes (%) (Auto) 8 % (0-9) 8 % (0-9) Eosinophils (%) (Auto) 2 % (0-3) 2 % (0-3) Basophils (%) (Auto) 1 % (0-3) 1 % (0-3) Neutrophils # (Auto) 4.0 x10^3/uL (1.8-7.7) 3.7 x10^3/uL (1.8-7.7) Lymphocytes # (Auto) 2.1 x10^3/uL (1.0-4.8) 2.0 x10^3/uL (1.0-4.8) Monocytes # (Auto) 0.5 x10^3/uL (0.0-1.1) 0.5 x10^3/uL (0.0-1.1) Eosinophils # (Auto) 0.2 x10^3/uL (0.0-0.7) 0.2 x10^3/uL (0.0-0.7) Basophils # (Auto) 0.1 x10^3/uL (0.0-0.2) 0.1 x10^3/uL (0.0-0.2) Prothrombin Time 12.2 SEC (11.7-14.0) Prothromb Time International Ratio 0.9 (0.8-1.1) Activated Partial Thromboplast Time 22 SEC (24-38) Sodium Level 135 mmol/L (136-145) 139 mmol/L (136-145) Potassium Level 5.0 mmol/L (3.5-5.1) 4.0 mmol/L (3.5-5.1) Chloride Level 101 mmol/L (98-107) 105 mmol/L (98-107) Carbon Dioxide Level 24 mmol/L (21-32) 24 mmol/L (21-32) Anion Gap 10 (6-14) 10 (6-14) Blood Urea Nitrogen 16 mg/dL (7-20) 16 mg/dL (7-20) Creatinine 0.9 mg/dL (0.6-1.0) 0.9 mg/dL (0.6-1.0) Estimated GFR (Cockcroft-Gault) 59.8 59.8 Glucose Level 104 mg/dL (70-99) 96 mg/dL (70-99) Calcium Level 9.5 mg/dL (8.5-10.1) 8.7 mg/dL (8.5-10.1) Total Bilirubin 0.5 mg/dL (0.2-1.0) Direct Bilirubin 0.1 mg/dL (0.0-0.2) Aspartate Amino Transf (AST/SGOT) 24 U/L (15-37) Alanine Aminotransferase (ALT/SGPT) 27 U/L (14-59) Alkaline Phosphatase 60 U/L (46-116) Troponin I Quantitative < 0.017 ng/mL (0.000-0.055) XA-Qcz-J-Type Natriuretic Peptide 145 pg/mL (0-449) Total Protein 7.1 g/dL (6.4-8.2) Albumin 3.8 g/dL (3.4-5.0) Lipase 183 U/L (73-393) Thyroid Stimulating Hormone (TSH) 0.690 uIU/mL (0.358-3.74) Phosphorus Level 4.1 mg/dL (2.6-4.7) Magnesium Level 1.7 mg/dL (1.8-2.4) Images Images Chest x-ray with no acute process. Assessment/Plan Assessment/Plan 1. Rapid atrial fibrillation. Rate of 170. Patient is converted to sinus rhythm. We will continue IV Cardizem and start oral calcium channel blockers. We will continue other home medications. We will continue to monitor and place a outpatient monitor. Possible use of anticoagulation but will make a final decision tomorrow. 2. History of bypass surgery. Chest pain resolved. Most consistent with chest pain secondary to her rapid rate. Initial troponin normal. Continue baseline medications. 3. Hypertension. Better controlled. Continue medications. 4. Hyperlipidemia. Continue statins. Thank you for allowing us to participate in the care of your patient. TAB DUMONT MD Jun 05, 2020 12:34
--- NOTE | 2020-06-05 14:06 | PDOC ---
PROGRESS NOTES Date of Service: DATE: 06/05/20 TIME: 14:04 Chief Complaint Chief Complaint Assessment/Plan Acute chest pain due to A. fib RVR New onset A. fib RVR Acute abdominal pain due to constipation/diarrhea Acute electrolyte derangementhyponatremia and hyperkalemia Reactive erythrocytosis likely due to mild Dehydration History of CABG Hypothyroidism Morbid obesity with comorbidities Hypertension Dyslipidemia Cardiology consult done and noted Continue diltiazem drip to titrate heart rate to 100-110 Restart home medications Pending echocardiogram Start bowel regimen continue supportive measures IV electrolyte replacement protocol Lovenox for DVT prophylaxis Cardiac diet Full code Discussed with RN and SW Disposition pending PT eval Surrogate decision maker is Francoise Palomo History of Present Illness History of Present Illness HPI: 84-year-old female with past medical history of CABG, dementia, constipation, hypothyroidism, hypertension, dyslipidemia who presents to the department via EMS from her doctor's office when she suddenly had chest pain or palpitations. EMS did report her heart rate in the 170s. With normal blood pressure. Patient states over the past couple days she has been having constipation and some diarrhea. Before arrival she did have some loose stools and she did take stool softeners during this time. Patient does have some difficulty remembering why she was in the hospital in October and also in January. She does note that she does see a enthone solder stripper for her heart issues and she had heart surgery. Denies fevers, shortness of breath, dysuria, syncope, dizziness, lightheadedness, or bloody stools ED course: 84-year-old female presenting with chest pain found to be in A. fib with RVR. Diltiazem bolus and drip ordered. This is new A. fib for the patient, no record of her having history of A. fib in her chart. She is not on blood thinners. 06/05: No acute events reported overnight, case discussed with nursing staff patient in no acute distress no complaints during my visit no chest pain during my encounter patient awaiting for PT and OT evaluation lives in an assisted living facility but feels weaker than usual. Reassurance provided no further chest pain reported Dr. Camara's consultation greatly appreciated Vitals Vitals Vital Signs Date Time Temp Pulse Resp B/P (MAP) Pulse Ox O2 Delivery O2 Flow Rate FiO2 06/05/20 11:00 98.2 67 20 132/59 (83) 93 Room Air 98.2 Physical Exam Physical Exam GEN: No apparent distress. Alert and oriented HEENT: Normal cephalic, atraumatic, external auditory canals are patent EYES: Extraocular muscles are intact, pupil are equally round and reactive to light and accommodation MUSCULOSKELETAL: Well developed , well nourished, good range of motion ENDOCRINE: No thyromegaly was palpated LYMPHATICS: No cervical chain or axillary nodes were noted HEMATOPOIETIC: No bruising NECK: Supple, no JVD, no thyromegaly was noted LUNGS: Clear to auscultation in all lung hernandez without rhonchi or wheezing HEART: RRR, S!, S2 present. Peripheral pulses intact, no obvious murmurs noted ABDOMEN: Soft, nontender. Positive bowel sounds, no organomegaly, normal bowel sounds EXTREMITIES: Without clubbing, cyanosis, or edema. Pedal pulses intact. N egative Homans sign NEUROLOGIC: Normal speech and tone. A&O x 3, moves all extremities, no obvious focal deficits PSYCHIATRIC: Normal affect, normal mood. Stable SKIN: No ulcerations or rashes, good skin turgor, no jaundice VASCULAR: Good capillary refill, neurovascular bundle appears to be intact General: No acute distress Heart: Regular rate Lungs: Clear Abdomen: Normal bowel sounds Labs LABS Laboratory Tests Test 06/05/20 04:30 White Blood Count 6.5 x10^3/uL (4.0-11.0) Red Blood Count 4.27 x10^6/uL (3.50-5.40) Hemoglobin 13.8 g/dL (12.0-15.5) Hematocrit 40.4 % (36.0-47.0) Mean Corpuscular Volume 95 fL (79-100) Mean Corpuscular Hemoglobin 32 pg (25-35) Mean Corpuscular Hemoglobin Concent 34 g/dL (31-37) Red Cell Distribution Width 13.7 % (11.5-14.5) Platelet Count 186 x10^3/uL (140-400) Neutrophils (%) (Auto) 57 % (31-73) Lymphocytes (%) (Auto) 31 % (24-48) Monocytes (%) (Auto) 8 % (0-9) Eosinophils (%) (Auto) 2 % (0-3) Basophils (%) (Auto) 1 % (0-3) Neutrophils # (Auto) 3.7 x10^3/uL (1.8-7.7) Lymphocytes # (Auto) 2.0 x10^3/uL (1.0-4.8) Monocytes # (Auto) 0.5 x10^3/uL (0.0-1.1) Eosinophils # (Auto) 0.2 x10^3/uL (0.0-0.7) Basophils # (Auto) 0.1 x10^3/uL (0.0-0.2) Sodium Level 139 mmol/L (136-145) Potassium Level 4.0 mmol/L (3.5-5.1) Chloride Level 105 mmol/L (98-107) Carbon Dioxide Level 24 mmol/L (21-32) Anion Gap 10 (6-14) Blood Urea Nitrogen 16 mg/dL (7-20) Creatinine 0.9 mg/dL (0.6-1.0) Estimated GFR (Cockcroft-Gault) 59.8 Glucose Level 96 mg/dL (70-99) Calcium Level 8.7 mg/dL (8.5-10.1) Phosphorus Level 4.1 mg/dL (2.6-4.7) Magnesium Level 1.7 mg/dL (1.8-2.4) Assessment and Plan Assessmemt and Plan Problems Medical Problems: (1) Atrial fibrillation with RVR Status: Acute (2) Chest pain Status: Acute Comment Review of Relevant I have reviewed the following items tatianna (where applicable) has been applied. Labs Laboratory Tests Test 06/04/20 14:02 06/05/20 04:30 White Blood Count 6.9 x10^3/uL (4.0-11.0) 6.5 x10^3/uL (4.0-11.0) Red Blood Count 4.88 x10^6/uL (3.50-5.40) 4.27 x10^6/uL (3.50-5.40) Hemoglobin 15.9 g/dL (12.0-15.5) 13.8 g/dL (12.0-15.5) Hematocrit 46.4 % (36.0-47.0) 40.4 % (36.0-47.0) Mean Corpuscular Volume 95 fL (79-100) 95 fL (79-100) Mean Corpuscular Hemoglobin 33 pg (25-35) 32 pg (25-35) Mean Corpuscular Hemoglobin Concent 34 g/dL (31-37) 34 g/dL (31-37) Red Cell Distribution Width 13.6 % (11.5-14.5) 13.7 % (11.5-14.5) Platelet Count 209 x10^3/uL (140-400) 186 x10^3/uL (140-400) Neutrophils (%) (Auto) 59 % (31-73) 57 % (31-73) Lymphocytes (%) (Auto) 30 % (24-48) 31 % (24-48) Monocytes (%) (Auto) 8 % (0-9) 8 % (0-9) Eosinophils (%) (Auto) 2 % (0-3) 2 % (0-3) Basophils (%) (Auto) 1 % (0-3) 1 % (0-3) Neutrophils # (Auto) 4.0 x10^3/uL (1.8-7.7) 3.7 x10^3/uL (1.8-7.7) Lymphocytes # (Auto) 2.1 x10^3/uL (1.0-4.8) 2.0 x10^3/uL (1.0-4.8) Monocytes # (Auto) 0.5 x10^3/uL (0.0-1.1) 0.5 x10^3/uL (0.0-1.1) Eosinophils # (Auto) 0.2 x10^3/uL (0.0-0.7) 0.2 x10^3/uL (0.0-0.7) Basophils # (Auto) 0.1 x10^3/uL (0.0-0.2) 0.1 x10^3/uL (0.0-0.2) Prothrombin Time 12.2 SEC (11.7-14.0) Prothromb Time International Ratio 0.9 (0.8-1.1) Activated Partial Thromboplast Time 22 SEC (24-38) Sodium Level 135 mmol/L (136-145) 139 mmol/L (136-145) Potassium Level 5.0 mmol/L (3.5-5.1) 4.0 mmol/L (3.5-5.1) Chloride Level 101 mmol/L (98-107) 105 mmol/L (98-107) Carbon Dioxide Level 24 mmol/L (21-32) 24 mmol/L (21-32) Anion Gap 10 (6-14) 10 (6-14) Blood Urea Nitrogen 16 mg/dL (7-20) 16 mg/dL (7-20) Creatinine 0.9 mg/dL (0.6-1.0) 0.9 mg/dL (0.6-1.0) Estimated GFR (Cockcroft-Gault) 59.8 59.8 Glucose Level 104 mg/dL (70-99) 96 mg/dL (70-99) Calcium Level 9.5 mg/dL (8.5-10.1) 8.7 mg/dL (8.5-10.1) Total Bilirubin 0.5 mg/dL (0.2-1.0) Direct Bilirubin 0.1 mg/dL (0.0-0.2) Aspartate Amino Transf (AST/SGOT) 24 U/L (15-37) Alanine Aminotransferase (ALT/SGPT) 27 U/L (14-59) Alkaline Phosphatase 60 U/L (46-116) Troponin I Quantitative < 0.017 ng/mL (0.000-0.055) TJ-Eih-V-Type Natriuretic Peptide 145 pg/mL (0-449) Total Protein 7.1 g/dL (6.4-8.2) Albumin 3.8 g/dL (3.4-5.0) Lipase 183 U/L (73-393) Thyroid Stimulating Hormone (TSH) 0.690 uIU/mL (0.358-3.74) Phosphorus Level 4.1 mg/dL (2.6-4.7) Magnesium Level 1.7 mg/dL (1.8-2.4) Laboratory Tests Test 06/05/20 04:30 White Blood Count 6.5 x10^3/uL (4.0-11.0) Red Blood Count 4.27 x10^6/uL (3.50-5.40) Hemoglobin 13.8 g/dL (12.0-15.5) Hematocrit 40.4 % (36.0-47.0) Mean Corpuscular Volume 95 fL (79-100) Mean Corpuscular Hemoglobin 32 pg (25-35) Mean Corpuscular Hemoglobin Concent 34 g/dL (31-37) Red Cell Distribution Width 13.7 % (11.5-14.5) Platelet Count 186 x10^3/uL (140-400) Neutrophils (%) (Auto) 57 % (31-73) Lymphocytes (%) (Auto) 31 % (24-48) Monocytes (%) (Auto) 8 % (0-9) Eosinophils (%) (Auto) 2 % (0-3) Basophils (%) (Auto) 1 % (0-3) Neutrophils # (Auto) 3.7 x10^3/uL (1.8-7.7) Lymphocytes # (Auto) 2.0 x10^3/uL (1.0-4.8) Monocytes # (Auto) 0.5 x10^3/uL (0.0-1.1) Eosinophils # (Auto) 0.2 x10^3/uL (0.0-0.7) Basophils # (Auto) 0.1 x10^3/uL (0.0-0.2) Sodium Level 139 mmol/L (136-145) Potassium Level 4.0 mmol/L (3.5-5.1) Chloride Level 105 mmol/L (98-107) Carbon Dioxide Level 24 mmol/L (21-32) Anion Gap 10 (6-14) Blood Urea Nitrogen 16 mg/dL (7-20) Creatinine 0.9 mg/dL (0.6-1.0) Estimated GFR (Cockcroft-Gault) 59.8 Glucose Level 96 mg/dL (70-99) Calcium Level 8.7 mg/dL (8.5-10.1) Phosphorus Level 4.1 mg/dL (2.6-4.7) Magnesium Level 1.7 mg/dL (1.8-2.4) Medications Current Medications Diltiazem HCl (Cardizem Iv Push) 10 mg 1X ONCE IVP Last administered on 06/04/20at 14:10; Start 06/04/20 at 14:00; Stop 06/04/20 at 14:01; Status DC Diltiazem HCl 125 mg/Sodium Chloride 125 ml @ 5 mls/hr 1X ONCE IV ; Start 06/04/20 at 14:00; Stop 06/05/20 at 14:59 Nitroglycerin (Nitrostat) 0.4 mg PRN Q5MIN PRN SL CHEST PAIN; Start 06/04/20 at 16:30 Sennosides (Senna) 17.2 mg PRN BID PRN PO CONSTIPATION; Start 06/04/20 at 16:30 Docusate Sodium (Colace) 100 mg PRN DAILY PRN PO HARD STOOLS; Start 06/04/20 at 16:30 Ondansetron HCl (Zofran) 4 mg PRN Q6HRS PRN IVP NAUSEA/VOMITING; Start 06/04/20 at 16:30 Potassium Chloride (Klor-Con) 40 meq 1X PRN PO PER PROTOCOL; Start 06/04/20 at 16:30 Magnesium Oxide (Magnesium Oxide) 400 mg PRN BID PRN PO see comments; Start 06/04/20 at 21:00 Potassium Chloride/Water 100 ml @ 100 mls/hr PRN Q1HR PRN IV see comments; Start 06/04/20 at 16:30 Magnesium Sulfate 50 ml @ 25 mls/hr PRN DAILY PRN IV SEE COMMENTS Last administered on 06/05/20at 05:45; Start 06/04/20 at 16:30 Potassium Chloride/Water 100 ml @ 100 mls/hr PRN Q1HR PRN IV low k; Start 06/04/20 at 16:30 Aspirin (Ecotrin) 81 mg DAILYWBKFT PO Last administered on 06/05/20at 08:28; Start 06/05/20 at 08:00 Dextrose (Dextrose 50%-Water Syringe) 12.5 gm PRN Q15MIN PRN IV SEE COMMENTS; Start 06/04/20 at 16:30 Sodium Chloride 1,000 ml @ 125 mls/hr 1X ONCE IV Last administered on 06/04/20at 17:57; Start 06/04/20 at 16:30; Stop 06/05/20 at 00:29; Status DC Enoxaparin Sodium (Lovenox 40mg Syringe) 40 mg Q24H SQ Last administered on 06/04/20at 17:56; Start 06/04/20 at 17:00 Atorvastatin Calcium (Lipitor) 10 mg HS PO Last administered on 06/04/20at 22:02; Start 06/04/20 at 21:00 Bupropion HCl (Wellbutrin Sr) 150 mg BID PO Last administered on 06/05/20at 08:28; Start 06/04/20 at 21:00 Docusate Sodium (Colace) 200 mg DAILY PO Last administered on 06/05/20at 08:29; Start 06/05/20 at 09:00 Lactobacillus Rhamnosus (Culturelle) 1 cap BID PO Last administered on 06/05/20at 08:28; Start 06/04/20 at 21:00 Levothyroxine Sodium (Synthroid) 112 mcg DAILY06 PO Last administered on 06/05/20at 08:28; Start 06/05/20 at 09:00 Lisinopril (Prinivil) 5 mg DAILY PO Last administered on 06/05/20at 08:29; Start 06/05/20 at 09:00 Polyethylene Glycol (miraLAX PACKET) 17 gm QHS PO ; Start 06/04/20 at 21:00 Non-Formulary Medication (Mirabegron (Myrbetriq)) 50 mg DAILY PO ; Start 06/05/20 at 09:00; Status UNV Quetiapine Fumarate (SEROquel XR) 50 mg QHS PO Last administered on 06/05/20at 00:17; Start 06/04/20 at 21:00 Influenza Virus Vaccine Quadrival (Fluzone Quad Syringe) 0.5 ml ONCE ONCE VAX IM ; Start 06/05/20 at 09:00; Stop 06/05/20 at 09:01; Status DC Diltiazem HCl (Cardizem 24hr Cd) 180 mg DAILY PO ; Start 06/05/20 at 12:45 Active Scripts Active Levothyroxine Sodium 112 Mcg Tablet 1 Tab PO DAILY Zofran (Ondansetron Hcl) 4 Mg Tablet 1 Tab PO Q6HRS Cefdinir 300 Mg Capsule 1 Cap PO BID 3 Days Flagyl (Metronidazole) 500 Mg Tablet 500 Mg PO TID 4 Days Antifungal Cream (Miconazole Nitrate) 14 Gm Cream..g. 1 Taylor TP BID 10 Days Culturelle (Lactobacillus Rhamnosus Gg) 1 Each Cap.sprink 1 Cap PO BID 14 Days Polyethylene Glycol 3350 17 Gm Powd.pack 17 Gm PO QHS 30 Days Reported Systane 0.3-0.4% Eye Drops (Propylene Glycol/Peg 400) 15 Ml Drops 1 Drop EACHEYE QID Retaine Mgd Eye Drops (Light Mineral Oil/Min Oil/Pf) 1 Each Droperette 1 Drop EACHEYE QID 30 Days Nystop (Nystatin) 60 Gm Powder 60 Gm TP BID Restasis (Cyclosporine) 1 Each Droperette 1 Drop EACHEYE BID Lisinopril 5 Mg Tablet 1 Tab PO DAILY Aspirin 81 Mg Tab.chew 1 Tab PO DAILY Atorvastatin Calcium 10 Mg Tablet 10 Mg PO HS Celebrex (Celecoxib) 100 Mg Capsule 1 Cap PO BID Donepezil Hcl 23 Mg Tablet 1 Tab PO QHS 30 Days Wellbutrin Sr (Bupropion Hcl) 150 Mg Tablet.er 1 Tab PO BID Seroquel (Quetiapine Fumarate) 50 Mg Tablet 1 Tab PO QHS Seroquel (Quetiapine Fumarate) 50 Mg Tablet 1 Tab PO QHS Xanax (Alprazolam) 0.5 Mg Tablet 1 Tab PO TID Milk Of Magnesia (Magnesium Hydroxide) 400 Mg/5 Ml Oral.susp 400 Mg PO DAILY Docusate Sodium 100 Mg Capsule 2 Cap PO DAILY Myrbetriq (Mirabegron) 50 Mg Tab.er.24h 50 Mg PO DAILY Vitals/I & O Vital Sign - Last 24 Hours 06/04/20 06/04/20 06/04/20 06/04/20 14:10 14:15 14:30 14:45 Pulse 142 78 74 70 B/P (MAP) 122/66 124/63 (83) 122/70 (87) 108/58 (75) Pulse Ox 92 92 93 O2 Delivery Room Air Room Air Room Air 06/04/20 06/04/20 06/04/20 06/04/20 15:15 15:49 16:19 17:19 Pulse 70 72 72 72 B/P (MAP) 107/55 (72) 127/60 (82) 128/58 (81) 121/50 (73) Pulse Ox 94 94 95 96 O2 Delivery Room Air Room Air Room Air Room Air 06/04/20 06/04/20 06/04/20 06/04/20 17:49 18:45 20:00 22:38 Temp 97.9 98.0 97.9 98.0 Pulse 72 71 68 Resp 20 21 B/P (MAP) 139/61 (87) 115/58 (77) 122/60 (80) Pulse Ox 95 96 97 O2 Delivery Room Air Room Air Room Air Room Air 06/05/20 06/05/20 06/05/20 06/05/20 02:32 07:00 07:30 08:29 Temp 98.1 97.9 98.1 97.9 Pulse 68 71 80 Resp 20 18 B/P (MAP) 138/66 (90) 136/61 (86) 136/61 Pulse Ox 94 91 O2 Delivery Room Air Room Air Room Air 06/05/20 11:00 Temp 98.2 98.2 Pulse 67 Resp 20 B/P (MAP) 132/59 (83) Pulse Ox 93 O2 Delivery Room Air Intake and Output 06/04/20 06/04/20 06/05/20 15:00 23:00 07:00 Intake Total 200 ml 1100 ml Output Total 1 ml Balance 199 ml 1100 ml Justicifation of Admission Dx: Justifications for Admission: Justification of Admission Dx: Yes PURVI LIU MD Jun 05, 2020 14:06
[2020-06-05 15:00] VITALS: BP 122/64
[2020-06-05] MEDS: ALPRAZolam 0.5 MG TABLET PO SCH ×2 (15:06→21:01)
--- NOTE | 2020-06-05 15:23 | NUR ---
Pt states she uses [facility] (mail order) phone number is [phone]
[2020-06-05] MEDS: ENOXAPARIN 40 MG/0.4 ML SYRINGE. SQ SCH (17:45)
[2020-06-05 19:50] VITALS: BP 131/55
[2020-06-05] MEDS: POLYETHYLENE GLYCOL 3350 17 GM PACKET. PO SCH (21:00)
[2020-06-05] MEDS: ATORVASTATIN CALCIUM 10 MG TABLET. PO SCH (21:01)
[2020-06-05 22:45] VITALS: BP 138/64
[2020-06-06 04:30] VITALS: BP 125/57
[2020-06-06] MEDS: LEVOTHYROXINE 112 MCG TABLET PO SCH (06:06)
[2020-06-06 07:00] VITALS: BP 139/56
[2020-06-06] MEDS: ASPIRIN ENTERIC COATED 81 MG TABLET.DR. PO SCH (08:35)
[2020-06-06] MEDS: ALPRAZolam 0.5 MG TABLET PO SCH ×3 (08:35→21:35)
[2020-06-06] MEDS: buPROPion SR 150 MG TABLET.SA PO SCH ×2 (08:35→21:35)
[2020-06-06] MEDS: DOCUSATE SODIUM 100 MG CAPSULE. PO SCH (08:35)
[2020-06-06] MEDS: LACTOBACILLUS RHAMNOSUS GG 1 CAPSULE. PO SCH ×2 (08:35→21:35)
[2020-06-06] MEDS: LISINOPRIL 5 MG TABLET. PO SCH (08:36)
[2020-06-06] MEDS: NON FORMULARY ITEM (Mirabegron (Myrbetriq) 50 MG) PO SCH (08:52)
--- NOTE | 2020-06-06 10:31 | PDOC ---
PROGRESS NOTES Date of Service: DATE: 06/06/20 TIME: 10:30 Chief Complaint Chief Complaint Assessment/Plan Acute chest pain due to A. fib RVR New onset A. fib RVR Acute abdominal pain due to constipation/diarrhea Acute electrolyte derangementhyponatremia and hyperkalemia Reactive erythrocytosis likely due to mild Dehydration History of CABG Hypothyroidism Morbid obesity with comorbidities Hypertension Dyslipidemia Cardiology consult done and noted Follow recommendations from energy sales consultant Restart home medications Pending echocardiogram Start bowel regimen continue supportive measures IV electrolyte replacement protocol Lovenox for DVT prophylaxis Cardiac diet Full code Discussed with RN and SW Disposition pending PT eval Surrogate decision maker is Francoise Palomo History of Present Illness History of Present Illness HPI: 84-year-old female with past medical history of CABG, dementia, constipation, h ypothyroidism, hypertension, dyslipidemia who presents to the department via EMS from her doctor's office when she suddenly had chest pain or palpitations. EMS did report her heart rate in the 170s. With normal blood pressure. Patient states over the past couple days she has been having constipation and some diarrhea. Before arrival she did have some loose stools and she did take stool softeners during this time. Patient does have some difficulty remembering why she was in the hospital in October and also in January. She does note that she does see a crowning inspector for her heart issues and she had heart surgery. Denies fevers, shortness of breath, dysuria, syncope, dizziness, lightheadedness, or bloody stools ED course: 84-year-old female presenting with chest pain found to be in A. fib with RVR. Diltiazem bolus and drip ordered. This is new A. fib for the patient, no record of her having history of A. fib in her chart. She is not on blood thinners. 06/05: No acute events reported overnight, case discussed with nursing staff patient in no acute distress no complaints during my visit no chest pain during my encounter patient awaiting for PT and OT evaluation lives in an assisted living facility but feels weaker than usual. Reassurance provided no further chest pain reported Dr. Camara's consultation greatly appreciated 06/06: Patient still concerned that when she goes back to her assisted living facility she might not be able to fend for herself. From the medical standpoint of view the patient has been rate control at the present time. Still awaiting for recommendations regarding anticoagulation from energy sales consultant the other complaint is that her eyedrops have not been restarted. We will look into the the eyedrops that she has at home and restarted them. Vitals Vitals Vital Signs Date Time Temp Pulse Resp B/P (MAP) Pulse Ox O2 Delivery O2 Flow Rate FiO2 06/06/20 08:36 68 139/56 06/06/20 07:00 97.7 20 92 Room Air 97.7 Physical Exam Physical Exam GEN: No apparent distress. Alert and oriented HEENT: Normal cephalic, atraumatic, external auditory canals are patent EYES: Extraocular muscles are intact, pupil are equally round and reactive to light and accommodation MUSCULOSKELETAL: Well developed , well nourished, good range of motion ENDOCRINE: No thyromegaly was palpated LYMPHATICS: No cervical chain or axillary nodes were noted HEMATOPOIETIC: No bruising NECK: Supple, no JVD, no thyromegaly was noted LUNGS: Clear to auscultation in all lung hernandez without rhonchi or wheezing HEART: RRR, S!, S2 present. Peripheral pulses intact, no obvious murmurs noted ABDOMEN: Soft, nontender. Positive bowel sounds, no organomegaly, normal bowel sounds EXTREMITIES: Without clubbing, cyanosis, or edema. Pedal pulses intact. Negative Homans sign NEUROLOGIC: Normal speech and tone. A&O x 3, moves all extremities, no obvious focal deficits PSYCHIATRIC: Normal affect, normal mood. Stable SKIN: No ulcerations or rashes, good skin turgor, no jaundice VASCULAR: Good capillary refill, neurovascular bundle appears to be intact General: No acute distress Heart: Regular rate Lungs: Clear Abdomen: Normal bowel sounds Assessment and Plan Assessmemt and Plan Problems Medical Problems: (1) Atrial fibrillation with RVR Status: Acute (2) Chest pain Status: Acute Comment Review of Relevant I have reviewed the following items tatianna (where applicable) has been applied. Labs Laboratory Tests Test 06/04/20 14:02 06/05/20 04:30 White Blood Count 6.9 x10^3/uL (4.0-11.0) 6.5 x10^3/uL (4.0-11.0) Red Blood Count 4.88 x10^6/uL (3.50-5.40) 4.27 x10^6/uL (3.50-5.40) Hemoglobin 15.9 g/dL (12.0-15.5) 13.8 g/dL (12.0-15.5) Hematocrit 46.4 % (36.0-47.0) 40.4 % (36.0-47.0) Mean Corpuscular Volume 95 fL (79-100) 95 fL (79-100) Mean Corpuscular Hemoglobin 33 pg (25-35) 32 pg (25-35) Mean Corpuscular Hemoglobin Concent 34 g/dL (31-37) 34 g/dL (31-37) Red Cell Distribution Width 13.6 % (11.5-14.5) 13.7 % (11.5-14.5) Platelet Count 209 x10^3/uL (140-400) 186 x10^3/uL (140-400) Neutrophils (%) (Auto) 59 % (31-73) 57 % (31-73) Lymphocytes (%) (Auto) 30 % (24-48) 31 % (24-48) Monocytes (%) (Auto) 8 % (0-9) 8 % (0-9) Eosinophils (%) (Auto) 2 % (0-3) 2 % (0-3) Basophils (%) (Auto) 1 % (0-3) 1 % (0-3) Neutrophils # (Auto) 4.0 x10^3/uL (1.8-7.7) 3.7 x10^3/uL (1.8-7.7) Lymphocytes # (Auto) 2.1 x10^3/uL (1.0-4.8) 2.0 x10^3/uL (1.0-4.8) Monocytes # (Auto) 0.5 x10^3/uL (0.0-1.1) 0.5 x10^3/uL (0.0-1.1) Eosinophils # (Auto) 0.2 x10^3/uL (0.0-0.7) 0.2 x10^3/uL (0.0-0.7) Basophils # (Auto) 0.1 x10^3/uL (0.0-0.2) 0.1 x10^3/uL (0.0-0.2) Prothrombin Time 12.2 SEC (11.7-14.0) Prothromb Time International Ratio 0.9 (0.8-1.1) Activated Partial Thromboplast Time 22 SEC (24-38) Sodium Level 135 mmol/L (136-145) 139 mmol/L (136-145) Potassium Level 5.0 mmol/L (3.5-5.1) 4.0 mmol/L (3.5-5.1) Chloride Level 101 mmol/L (98-107) 105 mmol/L (98-107) Carbon Dioxide Level 24 mmol/L (21-32) 24 mmol/L (21-32) Anion Gap 10 (6-14) 10 (6-14) Blood Urea Nitrogen 16 mg/dL (7-20) 16 mg/dL (7-20) Creatinine 0.9 mg/dL (0.6-1.0) 0.9 mg/dL (0.6-1.0) Estimated GFR (Cockcroft-Gault) 59.8 59.8 Glucose Level 104 mg/dL (70-99) 96 mg/dL (70-99) Calcium Level 9.5 mg/dL (8.5-10.1) 8.7 mg/dL (8.5-10.1) Total Bilirubin 0.5 mg/dL (0.2-1.0) Direct Bilirubin 0.1 mg/dL (0.0-0.2) Aspartate Amino Transf (AST/SGOT) 24 U/L (15-37) Alanine Aminotransferase (ALT/SGPT) 27 U/L (14-59) Alkaline Phosphatase 60 U/L (46-116) Troponin I Quantitative < 0.017 ng/mL (0.000-0.055) [id number] Natriuretic Peptide 145 pg/mL (0-449) Total Protein 7.1 g/dL (6.4-8.2) Albumin 3.8 g/dL (3.4-5.0) Lipase 183 U/L (73-393) Thyroid Stimulating Hormone (TSH) 0.690 uIU/mL (0.358-3.74) Phosphorus Level 4.1 mg/dL (2.6-4.7) Magnesium Level 1.7 mg/dL (1.8-2.4) Medications Current Medications Diltiazem HCl (Cardizem Iv Push) 10 mg 1X ONCE IVP Last administered on 06/04/20at 14:10; Start 06/04/20 at 14:00; Stop 06/04/20 at 14:01; Status DC Diltiazem HCl 125 mg/Sodium Chloride 125 ml @ 5 mls/hr 1X ONCE IV ; Start 06/04/20 at 14:00; Stop 06/05/20 at 14:59; Status DC Nitroglycerin (Nitrostat) 0.4 mg PRN Q5MIN PRN SL CHEST PAIN; Start 06/04/20 at 16:30 Sennosides (Senna) 17.2 mg PRN BID PRN PO CONSTIPATION; Start 06/04/20 at 16:30 Docusate Sodium (Colace) 100 mg PRN DAILY PRN PO HARD STOOLS; Start 06/04/20 at 16:30 Ondansetron HCl (Zofran) 4 mg PRN Q6HRS PRN IVP NAUSEA/VOMITING; Start 06/04/20 at 16:30 Potassium Chloride (Klor-Con) 40 meq 1X PRN PO PER PROTOCOL; Start 06/04/20 at 16:30 Magnesium Oxide (Magnesium Oxide) 400 mg PRN BID PRN PO see comments; Start 06/04/20 at 21:00 Potassium Chloride/Water 100 ml @ 100 mls/hr PRN Q1HR PRN IV see comments; St art 06/04/20 at 16:30 Magnesium Sulfate 50 ml @ 25 mls/hr PRN DAILY PRN IV SEE COMMENTS Last administered on 06/05/20at 05:45; Start 06/04/20 at 16:30 Potassium Chloride/Water 100 ml @ 100 mls/hr PRN Q1HR PRN IV low k; Start 06/04/20 at 16:30 Aspirin (Ecotrin) 81 mg DAILYWBKFT PO Last administered on 06/06/20at 08:35; Start 06/05/20 at 08:00 Dextrose (Dextrose 50%-Water Syringe) 12.5 gm PRN Q15MIN PRN IV SEE COMMENTS; Start 06/04/20 at 16:30 Sodium Chloride 1,000 ml @ 125 mls/hr 1X ONCE IV Last administered on 06/04/20at 17:57; Start 06/04/20 at 16:30; Stop 06/05/20 at 00:29; Status DC Enoxaparin Sodium (Lovenox 40mg Syringe) 40 mg Q24H SQ Last administered on 06/05/20at 17:45; Start 06/04/20 at 17:00 Atorvastatin Calcium (Lipitor) 10 mg HS PO Last administered on 06/05/20at 21:01; Start 06/04/20 at 21:00 Bupropion HCl (Wellbutrin Sr) 150 mg BID PO Last administered on 06/06/20 08:35; Start 06/04/20 at 21:00 Docusate Sodium (Colace) 200 mg DAILY PO Last administered on 06/06/20 08:35; Start 06/05/20 at 09:00 Lactobacillus Rhamnosus (Culturelle) 1 cap BID PO Last administered on 06/06/20 08:35; Start 06/04/20 at 21:00 Levothyroxine Sodium (Synthroid) 112 mcg DAILY06 PO Last administered on 06/06/20at 06:06; Start 06/05/20 at 09:00 Lisinopril (Prinivil) 5 mg DAILY PO Last administered on 06/06/20at 08:36; Start 06/05/20 at 09:00 Polyethylene Glycol (miraLAX PACKET) 17 gm QHS PO ; Start 06/04/20 at 21:00 Non-Formulary Medication (Mirabegron (Myrbetriq)) 50 mg DAILY PO ; Start 06/05/20 at 09:00; Status UNV Quetiapine Fumarate (SEROquel XR) 50 mg QHS PO Last administered on 06/05/20at 21:01; Start 06/04/20 at 21:00 Influenza Virus Vaccine Quadrival (Fluzone Quad Syringe) 0.5 ml ONCE ONCE VAX IM ; Start 06/05/20 at 09:00; Stop 06/05/20 at 09:01; Status DC Diltiazem HCl (Cardizem 24hr Cd) 180 mg DAILY PO Last administered on 06/06/20at 08:36; Start 06/05/20 at 12:45 Alprazolam (Xanax) 0.5 mg TID PO Last administered on 06/06/20at 08:35; Start 06/05/20 at 15:00 Active Scripts Active Levothyroxine Sodium 112 Mcg Tablet 1 Tab PO DAILY Zofran (Ondansetron Hcl) 4 Mg Tablet 1 Tab PO Q6HRS Cefdinir 300 Mg Capsule 1 Cap PO BID 3 Days Flagyl (Metronidazole) 500 Mg Tablet 500 Mg PO TID 4 Days Antifungal Cream (Miconazole Nitrate) 14 Gm Cream..g. 1 Taylor TP BID 10 Days Culturelle (Lactobacillus Rhamnosus Gg) 1 Each Cap.sprink 1 Cap PO BID 14 Days Polyethylene Glycol 3350 17 Gm Powd.pack 17 Gm PO QHS 30 Days Reported Systane 0.3-0.4% Eye Drops (Propylene Glycol/Peg 400) 15 Ml Drops 1 Drop EACHEYE QID Retaine Mgd Eye Drops (Light Mineral Oil/Min Oil/Pf) 1 Each Droperette 1 Drop EACHEYE QID 30 Days Nystop (Nystatin) 60 Gm Powder 60 Gm TP BID Restasis (Cyclosporine) 1 Each Droperette 1 Drop EACHEYE BID Lisinopril 5 Mg Tablet 1 Tab PO DAILY Aspirin 81 Mg Tab.chew 1 Tab PO DAILY Atorvastatin Calcium 10 Mg Tablet 10 Mg PO HS Celebrex (Celecoxib) 100 Mg Capsule 1 Cap PO BID Donepezil Hcl 23 Mg Tablet 1 Tab PO QHS 30 Days Wellbutrin Sr (Bupropion Hcl) 150 Mg Tablet.er 1 Tab PO BID Seroquel (Quetiapine Fumarate) 50 Mg Tablet 1 Tab PO QHS Seroquel (Quetiapine Fumarate) 50 Mg Tablet 1 Tab PO QHS Xanax (Alprazolam) 0.5 Mg Tablet 1 Tab PO TID Milk Of Magnesia (Magnesium Hydroxide) 400 Mg/5 Ml Oral.susp 400 Mg PO DAILY Docusate Sodium 100 Mg Capsule 2 Cap PO DAILY Myrbetriq (Mirabegron) 50 Mg Tab.er.24h 50 Mg PO DAILY Vitals/I & O Vital Sign - Last 24 Hours 06/05/20 06/05/20 06/05/20 06/05/20 11:00 15:00 15:07 19:50 Temp 98.2 98.1 98.1 98.2 98.1 98.1 Pulse 67 81 77 71 Resp 20 20 18 B/P (MAP) 132/59 (83) 122/64 (83) 132/59 131/55 (80) Pulse Ox 93 92 92 O2 Delivery Room Air Room Air Room Air 9/06/05/20 06/06/20 06/06/20 20:00 22:45 03:00 04:30 Temp 98.0 97.8 98.0 97.8 Pulse 75 76 Resp 18 18 B/P (MAP) 138/64 (88) 125/57 (79) Pulse Ox 91 93 O2 Delivery Room Air Room Air Room Air Room Air 06/06/20 06/06/20 06/06/20 07:00 08:36 08:36 Temp 97.7 97.7 Pulse 68 68 68 Resp 20 B/P (MAP) 139/56 (83) 139/56 139/56 Pulse Ox 92 O2 Delivery Room Air Intake and Output 06/05/20 06/05/20 06/06/20 15:00 23:00 07:00 Intake Total 250 ml 650 ml 240 ml Output Total 1100 ml 1200 ml Balance -850 ml 650 ml -960 ml Justicifation of Admission Dx: Justifications for Admission: Justification of Admission Dx: Yes PURVI LIU MD Jun 06, 2020 10:31
[2020-06-06 11:00] VITALS: BP 135/66
[2020-06-06] MEDS: MAGNESIUM HYDROXIDE 2,400 MG/30 ML ORAL.SUSP. PO SCH (12:00)
[2020-06-06] MEDS: NYSTATIN TOPICAL POWDER 15GM BOTTLE. TP SCH ×3 (12:00→21:36)
[2020-06-06] MEDS: ONDANSETRON ODT 4 MG TAB.RAPDIS. PO SCH ×3 (12:00→23:26)
[2020-06-06] MEDS: MICONAZOLE NITRATE 2% TOPICAL CREAM 28GM TUBE. TP SCH ×3 (12:00→21:35)
[2020-06-06] MEDS ORDERED: MIN OIL EACHEYE SCH (13:00)
[2020-06-06] MEDS ORDERED: LIGHT MINERAL OIL EACHEYE SCH (13:00)
[2020-06-06] MEDS: DONEPEZIL HCL 10 MG TABLET. PO SCH ×2 (13:49→21:35)
[2020-06-06] MEDS: cycloSPORINE 0.05% OPHTH DROPERETTE. OU SCH ×2 (13:52→21:35)
[2020-06-06] MEDS: POLYVINYL ALCOHOL 1.4% OPHTH SOLUTION 15ML BOTTLE. OU SCH ×3 (13:52→21:35)
--- NOTE | 2020-06-06 14:11 | PDOC ---
PROGRESS NOTES Date of Service DATE: 06/06/20 TIME: 14:09 Subjective Subjective Patient seen and examined Objective Objective Vital Signs Date Time Temp Pulse Resp B/P (MAP) Pulse Ox O2 Delivery O2 Flow Rate FiO2 06/06/20 11:00 97.5 76 20 135/66 (89) 93 Room Air 97.5 Intake and Output 06/06/20 07:00 Intake Total 1140 ml Output Total 2300 ml Balance -1160 ml Intake Oral 1090 ml IV Total 50 ml Output Urine Total 2300 ml # Voids 2 Physical Exam Abdomen: Normal bowel sounds Heart: Regular rate General: No acute distress Lungs: Clear to auscultation Assessment Assessment Problems Medical Problems: (1) Atrial fibrillation with RVR Status: Acute (2) Chest pain Status: Acute 1. Rapid atrial fibrillation. Initial rate of 170. Converted to sinus rhythm. Will treat with oral calcium channel blockers. Would proceed with the use of Eliquis. Will check outpatient monitor to exclude recurrent atrial fibrillation. 2. History of bypass surgery. Chest pain resolved. Most consistent with chest pain secondary to her rapid rate. Initial troponin normal. Continue baseline medications. 3. Hypertension. Better controlled. Continue medications. 4. Hyperlipidemia. Continue statins. Comment Review of Relevant I have reviewed the following items tatianna (where applicable) has been applied. Labs Laboratory Tests Test 06/05/20 04:30 White Blood Count 6.5 x10^3/uL (4.0-11.0) Red Blood Count 4.27 x10^6/uL (3.50-5.40) Hemoglobin 13.8 g/dL (12.0-15.5) Hematocrit 40.4 % (36.0-47.0) Mean Corpuscular Volume 95 fL (79-100) Mean Corpuscular Hemoglobin 32 pg (25-35) Mean Corpuscular Hemoglobin Concent 34 g/dL (31-37) Red Cell Distribution Width 13.7 % (11.5-14.5) Platelet Count 186 x10^3/uL (140-400) Neutrophils (%) (Auto) 57 % (31-73) Lymphocytes (%) (Auto) 31 % (24-48) Monocytes (%) (Auto) 8 % (0-9) Eosinophils (%) (Auto) 2 % (0-3) Basophils (%) (Auto) 1 % (0-3) Neutrophils # (Auto) 3.7 x10^3/uL (1.8-7.7) Lymphocytes # (Auto) 2.0 x10^3/uL (1.0-4.8) Monocytes # (Auto) 0.5 x10^3/uL (0.0-1.1) Eosinophils # (Auto) 0.2 x10^3/uL (0.0-0.7) Basophils # (Auto) 0.1 x10^3/uL (0.0-0.2) Sodium Level 139 mmol/L (136-145) Potassium Level 4.0 mmol/L (3.5-5.1) Chloride Level 105 mmol/L (98-107) Carbon Dioxide Level 24 mmol/L (21-32) Anion Gap 10 (6-14) Blood Urea Nitrogen 16 mg/dL (7-20) Creatinine 0.9 mg/dL (0.6-1.0) Estimated GFR (Cockcroft-Gault) 59.8 Glucose Level 96 mg/dL (70-99) Calcium Level 8.7 mg/dL (8.5-10.1) Phosphorus Level 4.1 mg/dL (2.6-4.7) Magnesium Level 1.7 mg/dL (1.8-2.4) Medications Current Medications Diltiazem HCl (Cardizem Iv Push) 10 mg 1X ONCE IVP Last administered on 06/04/20at 14:10; Start 06/04/20 at 14:00; Stop 06/04/20 at 14:01; Status DC Diltiazem HCl 125 mg/Sodium Chloride 125 ml @ 5 mls/hr 1X ONCE IV ; Start 06/04/20 at 14:00; Stop 06/05/20 at 14:59; Status DC Nitroglycerin (Nitrostat) 0.4 mg PRN Q5MIN PRN SL CHEST PAIN; Start 06/04/20 at 16:30 Sennosides (Senna) 17.2 mg PRN BID PRN PO CONSTIPATION; Start 06/04/20 at 16:30 Docusate Sodium (Colace) 100 mg PRN DAILY PRN PO HARD STOOLS; Start 06/04/20 at 16:30 Ondansetron HCl (Zofran) 4 mg PRN Q6HRS PRN IVP NAUSEA/VOMITING; Start 06/04/20 at 16:30 Potassium Chloride (Klor-Con) 40 meq 1X PRN PO PER PROTOCOL; Start 06/04/20 at 16:30 Magnesium Oxide (Magnesium Oxide) 400 mg PRN BID PRN PO see comments; Start 06/04/20 at 21:00 Potassium Chloride/Water 100 ml @ 100 mls/hr PRN Q1HR PRN IV see comments; Start 06/04/20 at 16:30 Magnesium Sulfate 50 ml @ 25 mls/hr PRN DAILY PRN IV SEE COMMENTS Last administered on 06/05/20at 05:45; Start 06/04/20 at 16:30 Potassium Chloride/Water 100 ml @ 100 mls/hr PRN Q1HR PRN IV low k; Start 06/04/20 at 16:30 Aspirin (Ecotrin) 81 mg DAILYWBKFT PO Last administered on 06/06/20at 08:35; Start 06/05/20 at 08:00 Dextrose (Dextrose 50%-Water Syringe) 12.5 gm PRN Q15MIN PRN IV SEE COMMENTS; Start 06/04/20 at 16:30 Sodium Chloride 1,000 ml @ 125 mls/hr 1X ONCE IV Last administered on 06/04/20at 17:57; Start 06/04/20 at 16:30; Stop 06/05/20 at 00:29; Status DC Enoxaparin Sodium (Lovenox 40mg Syringe) 40 mg Q24H SQ Last administered on 06/05/20at 17:45; Start 06/04/20 at 17:00 Atorvastatin Calcium (Lipitor) 10 mg HS PO Last administered on 06/05/20at 21:01; Start 06/04/20 at 21:00 Bupropion HCl (Wellbutrin Sr) 150 mg BID PO Last administered on 06/06/20at 08:35; Start 06/04/20 at 21:00 Docusate Sodium (Colace) 200 mg DAILY PO Last administered on 06/06/20at 08:35; Start 06/05/20 at 09:00 Lactobacillus Rhamnosus (Culturelle) 1 cap BID PO Last administered on 06/06/20at 08:35; Start 06/04/20 at 21:00 Levothyroxine Sodium (Synthroid) 112 mcg DAILY06 PO Last administered on 06/06/20at 06:06; Start 06/05/20 at 09:00 Lisinopril (Prinivil) 5 mg DAILY PO Last administered on 06/06/20at 08:36; Start 06/05/20 at 09:00 Polyethylene Glycol (miraLAX PACKET) 17 gm QHS PO ; Start 06/04/20 at 21:00 Non-Formulary Medication (Mirabegron (Myrbetriq)) 50 mg DAILY PO ; Start 06/05/20 at 09:00; Status UNV Quetiapine Fumarate (SEROquel XR) 50 mg QHS PO Last administered on 06/05/20at 21:01; Start 06/04/20 at 21:00 Influenza Virus Vaccine Quadrival (Fluzone Quad Syringe) 0.5 ml ONCE ONCE VAX IM ; Start 06/05/20 at 09:00; Stop 06/05/20 at 09:01; Status DC Diltiazem HCl (Cardizem 24hr Cd) 180 mg DAILY PO Last administered on 06/06/20at 08:36; Start 06/05/20 at 12:45 Alprazolam (Xanax) 0.5 mg TID PO Last administered on 06/06/20at 13:48; Start 06/05/20 at 15:00 Aspirin (Aspirin Chewable) 81 mg DAILY PO ; Start 06/07/20 at 09:00; Stop 06/06/20 at 10:59; Status DC Celecoxib (CeleBREX) 100 mg BID PO ; Start 06/06/20 at 21:00 Cyclosporine (Restasis) 1 drop BID OU Last administered on 06/06/20at 13:52; Start 06/06/20 at 12:00 Magnesium Hydroxide (Milk Of Magnesia) 400 mg DAILY PO ; Start 06/06/20 at 12:00 Miconazole Nitrate (Monistat-Derm) 1 taylor BID TP ; Start 06/06/20 at 12:00 Nystatin (Nystop) 1 taylor BID TP ; Start 06/06/20 at 12:00 Donepezil HCl (Aricept) 10 mg BID PO Last administered on 06/06/20at 13:49; Start 06/06/20 at 12:00 Non-Formulary Medication (Light Mineral Oil/Min Oil/Pf (Retaine Mgd Eye Drops)) 1 drop QID EACHEYE ; Start 06/06/20 at 13:00; Stop 06/06/20 at 11:09; Status DC Ondansetron HCl (Zofran Odt) 4 mg Q6HRS PO ; Start 06/06/20 at 12:00 Glycerin/ Hypromellose/ Polyethylene (Artificial Tears) 1 drop QID OU Last administered on 06/06/20at 13:52; Start 06/06/20 at 13:00 Non-Formulary Medication (Quetiapine Fumarate (Seroquel)) 1 tab QHS PO ; Start 06/06/20 at 21:00; Stop 06/06/20 at 11:15; Status DC Active Scripts Active Levothyroxine Sodium 112 Mcg Tablet 1 Tab PO DAILY Zofran (Ondansetron Hcl) 4 Mg Tablet 1 Tab PO Q6HRS Cefdinir 300 Mg Capsule 1 Cap PO BID 3 Days Flagyl (Metronidazole) 500 Mg Tablet 500 Mg PO TID 4 Days Antifungal Cream (Miconazole Nitrate) 14 Gm Cream..g. 1 Taylor TP BID 10 Days Culturelle (Lactobacillus Rhamnosus Gg) 1 Each Cap.sprink 1 Cap PO BID 14 Days Polyethylene Glycol 3350 17 Gm Powd.pack 17 Gm PO QHS 30 Days Reported Systane 0.3-0.4% Eye Drops (Propylene Glycol/Peg 400) 15 Ml Drops 1 Drop EACHEYE QID Retaine Mgd Eye Drops (Light Mineral Oil/Min Oil/Pf) 1 Each Droperette 1 Drop E ACHEYE QID 30 Days Nystop (Nystatin) 60 Gm Powder 60 Gm TP BID Restasis (Cyclosporine) 1 Each Droperette 1 Drop EACHEYE BID Lisinopril 5 Mg Tablet 1 Tab PO DAILY Aspirin 81 Mg Tab.chew 1 Tab PO DAILY Atorvastatin Calcium 10 Mg Tablet 10 Mg PO HS Celebrex (Celecoxib) 100 Mg Capsule 1 Cap PO BID Donepezil Hcl 23 Mg Tablet 1 Tab PO QHS 30 Days Wellbutrin Sr (Bupropion Hcl) 150 Mg Tablet.er 1 Tab PO BID Seroquel (Quetiapine Fumarate) 50 Mg Tablet 1 Tab PO QHS Seroquel (Quetiapine Fumarate) 50 Mg Tablet 1 Tab PO QHS Xanax (Alprazolam) 0.5 Mg Tablet 1 Tab PO TID Milk Of Magnesia (Magnesium Hydroxide) 400 Mg/5 Ml Oral.susp 400 Mg PO DAILY Docusate Sodium 100 Mg Capsule 2 Cap PO DAILY Myrbetriq (Mirabegron) 50 Mg Tab.er.24h 50 Mg PO DAILY Vitals/I & O Vital Sign - Last 24 Hours 06/05/20 06/05/20 06/05/20 06/05/20 15:00 15:07 19:50 20:00 Temp 98.1 98.1 98.1 98.1 Pulse 81 77 71 Resp 20 18 B/P (MAP) 122/64 (83) 132/59 131/55 (80) Pulse Ox 92 92 O2 Delivery Room Air Room Air Room Air 06/05/20 06/06/20 06/06/20 06/06/20 22:45 03:00 04:30 07:00 Temp 98.0 97.8 97.7 98.0 97.8 97.7 Pulse 75 76 68 Resp 18 18 20 B/P (MAP) 138/64 (88) 125/57 (79) 139/56 (83) Pulse Ox 91 93 92 O2 Delivery Room Air Room Air Room Air Room Air 06/06/20 06/06/20 06/06/20 06/06/20 07:30 08:36 08:36 11:00 Temp 97.5 97.5 Pulse 68 68 76 Resp 20 B/P (MAP) 139/56 139/56 135/66 (89) Pulse Ox 93 O2 Delivery Room Air Room Air Intake and Output 06/05/20 06/05/20 06/06/20 15:00 23:00 07:00 Intake Total 250 ml 650 ml 240 ml Output Total 1100 ml 1200 ml Balance -850 ml 650 ml -960 ml Justifications for Admission Other Justification afib rvr TAB DUMONT MD Jun 06, 2020 14:11
[2020-06-06] MEDS ORDERED: ANTI-COAG MONITOR BY PHARMACY. MC PRN (14:30)
[2020-06-06 15:00] VITALS: BP 145/48
[2020-06-06 20:00] VITALS: BP 144/54
[2020-06-06] MEDS: POLYETHYLENE GLYCOL 3350 17 GM PACKET. PO SCH (21:00)
[2020-06-06] MEDS ORDERED: NON FORMULARY ITEM (Quetiapine Fumarate (Seroquel) 1 TAB) PO SCH (21:00)
[2020-06-06] MEDS: APIXABAN 2.5 MG TABLET. PO SCH (21:35)
[2020-06-06] MEDS: QUEtiapine 50 MG TAB.ER.24H. PO SCH (21:35)
[2020-06-06] MEDS: CELECOXIB 100 MG CAPSULE. PO SCH (21:35)
[2020-06-06] MEDS: ATORVASTATIN CALCIUM 10 MG TABLET. PO SCH (21:35)
[2020-06-06 23:14] VITALS: BP 116/51
[2020-06-07 03:38] VITALS: BP 118/53
[2020-06-07] MEDS: ONDANSETRON ODT 4 MG TAB.RAPDIS. PO SCH ×2 (06:00→08:28)
[2020-06-07] MEDS: LEVOTHYROXINE 112 MCG TABLET PO SCH (06:27)
[2020-06-07 07:26] VITALS: BP 126/62
[2020-06-07] MEDS ORDERED: ANTI-COAG MONITOR BY PHARMACY. MC PRN (08:00)
[2020-06-07] MEDS: DOCUSATE SODIUM 100 MG CAPSULE. PO SCH (08:30)
[2020-06-07] MEDS: LISINOPRIL 5 MG TABLET. PO SCH (08:30)
[2020-06-07] MEDS: LACTOBACILLUS RHAMNOSUS GG 1 CAPSULE. PO SCH (08:30)
[2020-06-07] MEDS: ALPRAZolam 0.5 MG TABLET PO SCH ×2 (08:31→14:11)
[2020-06-07] MEDS: CELECOXIB 100 MG CAPSULE. PO SCH (08:31)
[2020-06-07] MEDS: ASPIRIN ENTERIC COATED 81 MG TABLET.DR. PO SCH (08:31)
[2020-06-07] MEDS: DONEPEZIL HCL 10 MG TABLET. PO SCH (08:31)
[2020-06-07] MEDS: MAGNESIUM HYDROXIDE 2,400 MG/30 ML ORAL.SUSP. PO SCH (08:31)
[2020-06-07] MEDS: APIXABAN 2.5 MG TABLET. PO SCH (08:31)
[2020-06-07] MEDS: buPROPion SR 150 MG TABLET.SA PO SCH (08:31)
[2020-06-07] MEDS: NYSTATIN TOPICAL POWDER 15GM BOTTLE. TP SCH (08:32)
[2020-06-07] MEDS: POLYVINYL ALCOHOL 1.4% OPHTH SOLUTION 15ML BOTTLE. OU SCH ×2 (08:32→13:41)
[2020-06-07] MEDS: MICONAZOLE NITRATE 2% TOPICAL CREAM 28GM TUBE. TP SCH (09:00)
[2020-06-07] MEDS: NON FORMULARY ITEM (Mirabegron (Myrbetriq) 50 MG) PO SCH (09:00)
[2020-06-07] MEDS ORDERED: ASPIRIN CHEWABLE 81 MG TABLET. PO SCH (09:00)
[2020-06-07 09:25] LABS: BASO # 0.1 x10^3/uL (0.0-0.2); BASO % 1 % (0-3); EOS # 0.1 x10^3/uL (0.0-0.7); EOS % 2 % (0-3); HEMATOCRIT 42.9 % (36.0-47.0); HEMOGLOBIN 14.5 g/dL (12.0-15.5); LYMPH # 1.8 x10^3/uL (1.0-4.8); LYMPH % 28 % (24-48); MEAN CORPUSCULAR HEMOGLOBIN 32 pg (25-35); MEAN CORPUSCULAR HGB CONC 34 g/dL (31-37); MEAN CORPUSCULAR VOLUME 95 fL (79-100); MONO # 0.3 x10^3/uL (0.0-1.1); MONO % 5 % (0-9); NEUT % 64 % (31-73); PLATELET COUNT 195 x10^3/uL (140-400); RED BLOOD COUNT 4.53 x10^6/uL (3.50-5.40); RED CELL DISTRIBUTION WIDTH 13.6 % (11.5-14.5); WHITE BLOOD COUNT 6.3 x10^3/uL (4.0-11.0)
[2020-06-07 09:48] LABS: CREATININE 0.9 mg/dL (0.6-1.0); GFR 59.8; MAGNESIUM 1.8 mg/dL (1.8-2.4); POTASSIUM 4.2 mmol/L (3.5-5.1)
--- NOTE | 2020-06-07 10:30 | EKG ---
[facility] [address] [place] [id number] Test Date: 2020-06-04 Test Time: 13:43:37 Pat Name: ANDREW GARZA Department: Room: 200 1 Gender: F Surgical Nurse Practitioner: : [id number] Requested By: NILES SIMON Order Number: [id number] Reading MD: Elan Torres Measurements Intervals [place] Rate: 145 P: OK: QRS: 85 QRSD: 86 T: 68 QT: 302 QTc: 472 Interpretive Statements ATRIAL FIB/FLUTTER WITH RVR ST & T ABNORMALITY, CONSIDER INFERIOR ISCHEMIA OR LEFT VENTRICULAR STRAIN ABNORMAL ECG Electronically Signed On 06-09-2020 12:42:41 CDT by Elan Torres
[2020-06-07 10:55] VITALS: BP 109/64
--- NOTE | 2020-06-07 11:28 | NUR ---
SS following for discharge planning. SS reviewed pt chart and discussed with pt RN. Pt is from [facility], ; fax [phone], and is currently on room air. PT/OT recommended group home unit. SS met with pt and discussed group home unit and discharge planning. Pt declining group home unit at this time and reported that she would prefer to return to [facility] with [facility], ; fax [phone]. SS contacted [facility] and was notified that pt does NOT need a COVID19 test to return. Pt's RN notified. SS phoned and faxed clinical to [facility]. SS will continue to follow for discharge planning.
[2020-06-07] MEDS ORDERED: ELECTROLYTE (NON-ICU) PROTOCOL MC PRN (11:30)
--- NOTE | 2020-06-07 12:02 | PDOC ---
[employer] PROGRESS NOTE Date of Service DOS: DATE: 06/07/20 TIME: 12:01 Chief Complaint Chief Complaint Assessment/Plan Acute chest pain due to A. fib RVR New onset A. fib RVR Acute abdominal pain due to constipation/diarrhea Acute electrolyte derangementhyponatremia and hyperkalemia Reactive erythrocytosis likely due to mild Dehydration History of CABG Hypothyroidism Morbid obesity with comorbidities Hypertension Dyslipidemia Cardiology consult done and noted Follow recommendations from engagement quality consultant Restart home medications Pending echocardiogram Start bowel regimen continue supportive measures IV electrolyte replacement protocol Lovenox for DVT prophylaxis Cardiac diet Full code Discussed with RN and SW Disposition pending PT eval Surrogate decision maker is Francoise Palomo History of Present Illness History of Present Illness HPI: 84-year-old female with past medical history of CABG, dementia, constipation, hypothyroidism, hypertension, dyslipidemia who presents to the department via EMS from her doctor's office when she suddenly had chest pain or palpitations. EMS did report her heart rate in the 170s. With normal blood pressure. Patient states over the past couple days she has been having constipation and some diarrhea. Before arrival she did have some loose stools and she did take stool softeners during this time. Patient does have some difficulty remembering why she was in the hospital in October and also in January. She does note that she does see a electric spot welder for her heart issues and she had heart surgery. Denies fevers, shortness of breath, dysuria, syncope, dizziness, lightheadedness, or bloody stools ED course: 84-year-old female presenting with chest pain found to be in A. fib with RVR. Diltiazem bolus and drip ordered. This is new A. fib for the patient, no record of her having history of A. fib in her chart. She is not on blood thinners. 06/05: No acute events reported overnight, case discussed with nursing staff patient in no acute distress no complaints during my visit no chest pain during my encounter patient awaiting for PT and OT evaluation lives in an assisted living facility but feels weaker than usual. Reassurance provided no further chest pain reported Dr. Camara's consultation greatly appreciated 06/06: Patient still concerned that when she goes back to her assisted living facility she might not be able to fend for herself. From the medical standpoint of view the patient has been rate control at the present time. Still awaiting for recommendations regarding anticoagulation from engagement quality consultant the other complaint is that her eyedrops have not been restarted. We will look into the the eyedrops that she has at home and restarted them. 06/07: Patient evaluated at bedside. She is rate controlled. Will anticoagulation with Eliquis. She was discharged to her long-term. Discussed with RN. Vitals/I&O Vitals/I&O: Vital Signs Date Time Temp Pulse Resp B/P (MAP) Pulse Ox O2 Delivery O2 Flow Rate FiO2 06/07/20 10:55 98.2 93 18 109/64 (79) 94 Room Air 98.2 I & O 06/06/20 06/06/20 06/07/20 15:00 23:00 07:00 Intake Total 465 ml 300 ml 50 ml Output Total 100 ml Balance 465 ml 200 ml 50 ml Physical Exam Physical Exam: GEN: No apparent distress. Alert and oriented HEENT: Normal cephalic, atraumatic, external auditory canals are patent EYES: Extraocular muscles are intact, pupil are equally round and reactive to light and accommodation MUSCULOSKELETAL: Well developed , well nourished, good range of motion ENDOCRINE: No thyromegaly was palpated LYMPHATICS: No cervical chain or axillary nodes were noted HEMATOPOIETIC: No bruising NECK: Supple, no JVD, no thyromegaly was noted LUNGS: Clear to auscultation in all lung hernandez without rhonchi or wheezing HEART: RRR, S!, S2 present. Peripheral pulses intact, no obvious murmurs noted ABDOMEN: Soft, nontender. Positive bowel sounds, no organomegaly, normal bowel sounds EXTREMITIES: Without clubbing, cyanosis, or edema. Pedal pulses intact. Negative Homans sign NEUROLOGIC: Normal speech and tone. A&O x 3, moves all extremities, no obv ious focal deficits PSYCHIATRIC: Normal affect, normal mood. Stable SKIN: No ulcerations or rashes, good skin turgor, no jaundice VASCULAR: Good capillary refill, neurovascular bundle appears to be intact General: No acute distress Heart: Regular rate Lungs: Clear Abdomen: Normal bowel sounds Labs Labs: Laboratory Tests Test 06/07/20 08:50 White Blood Count 6.3 x10^3/uL (4.0-11.0) Red Blood Count 4.53 x10^6/uL (3.50-5.40) Hemoglobin 14.5 g/dL (12.0-15.5) Hematocrit 42.9 % (36.0-47.0) Mean Corpuscular Volume 95 fL (79-100) Mean Corpuscular Hemoglobin 32 pg (25-35) Mean Corpuscular Hemoglobin Concent 34 g/dL (31-37) Red Cell Distribution Width 13.6 % (11.5-14.5) Platelet Count 195 x10^3/uL (140-400) Neutrophils (%) (Auto) 64 % (31-73) Lymphocytes (%) (Auto) 28 % (24-48) Monocytes (%) (Auto) 5 % (0-9) Eosinophils (%) (Auto) 2 % (0-3) Basophils (%) (Auto) 1 % (0-3) Neutrophils # (Auto) 4.0 x10^3/uL (1.8-7.7) Lymphocytes # (Auto) 1.8 x10^3/uL (1.0-4.8) Monocytes # (Auto) 0.3 x10^3/uL (0.0-1.1) Eosinophils # (Auto) 0.1 x10^3/uL (0.0-0.7) Basophils # (Auto) 0.1 x10^3/uL (0.0-0.2) Sodium Level 138 mmol/L (136-145) Potassium Level 4.2 mmol/L (3.5-5.1) Chloride Level 103 mmol/L (98-107) Carbon Dioxide Level 24 mmol/L (21-32) Anion Gap 11 (6-14) Blood Urea Nitrogen 15 mg/dL (7-20) Creatinine 0.9 mg/dL (0.6-1.0) Estimated GFR (Cockcroft-Gault) 59.8 Glucose Level 141 mg/dL (70-99) Calcium Level 9.0 mg/dL (8.5-10.1) Magnesium Level 1.8 mg/dL (1.8-2.4) Review of Systems Review of Systems: Denies chest pain, denies nausea, denies vomiting, denies fever. Assessment and Plan Assessmemt and Plan Problems Medical Problems: (1) Atrial fibrillation with RVR Status: Acute (2) Chest pain Status: Acute Comment Review of Relevant I have reviewed the following items tatianna (where applicable) has been applied. Medications: Current Medications Medications (Trade) Dose Ordered Sig/Carlos Route PRN Reason Start Time Stop Time Status Last Admin Dose Admin Celecoxib (CeleBREX) 100 mg BID PO 06/06/20 21:00 06/07/20 08:31 Glycerin/ Hypromellose/ Polyethylene (Artificial Tears) 1 drop QID OU 06/06/20 13:00 06/07/20 08:32 Apixaban (Eliquis) 2.5 mg BID PO 06/06/20 21:00 06/07/20 08:31 Info (Anti-Coagulation Monitoring By Pharmacy) 1 each PRN DAILY PRN MC SEE COMMENTS 06/06/20 14:30 06/07/20 10:33 Justifications for Admission Other Justification afib rvr YANNICK ECHEVARRIA MD Jun 07, 2020 12:02
--- NOTE | 2020-06-07 12:04 | PDOC ---
FADI HANNA COAGULATING BATH OPERATOR 06/07/20 1204: CARDIO Progress Notes Date and Time Date of Service 06/07/20 Time of Evaluation 1200 Subjective Subjective: No Chest Pain, No shortness of breath Vitals Vitals Vital Signs Date Time Temp Pulse Resp B/P (MAP) Pulse Ox O2 Delivery O2 Flow Rate FiO2 06/07/20 10:55 98.2 93 18 109/64 (79) 94 Room Air 98.2 Weight Weight [ ] Input and Output Intake and Output Intake and Output 06/07/20 07:00 Intake Total 815 ml Output Total 100 ml Balance 715 ml Intake Oral 815 ml Output Urine Total 100 ml # Voids 7 # Bowel Movements 2 Laboratory Labs Laboratory Tests Test 06/07/20 08:50 White Blood Count 6.3 x10^3/uL (4.0-11.0) Red Blood Count 4.53 x10^6/uL (3.50-5.40) Hemoglobin 14.5 g/dL (12.0-15.5) Hematocrit 42.9 % (36.0-47.0) Mean Corpuscular Volume 95 fL (79-100) Mean Corpuscular Hemoglobin 32 pg (25-35) Mean Corpuscular Hemoglobin Concent 34 g/dL (31-37) Red Cell Distribution Width 13.6 % (11.5-14.5) Platelet Count 195 x10^3/uL (140-400) Neutrophils (%) (Auto) 64 % (31-73) Lymphocytes (%) (Auto) 28 % (24-48) Monocytes (%) (Auto) 5 % (0-9) Eosinophils (%) (Auto) 2 % (0-3) Basophils (%) (Auto) 1 % (0-3) Neutrophils # (Auto) 4.0 x10^3/uL (1.8-7.7) Lymphocytes # (Auto) 1.8 x10^3/uL (1.0-4.8) Monocytes # (Auto) 0.3 x10^3/uL (0.0-1.1) Eosinophils # (Auto) 0.1 x10^3/uL (0.0-0.7) Basophils # (Auto) 0.1 x10^3/uL (0.0-0.2) Sodium Level 138 mmol/L (136-145) Potassium Level 4.2 mmol/L (3.5-5.1) Chloride Level 103 mmol/L (98-107) Carbon Dioxide Level 24 mmol/L (21-32) Anion Gap 11 (6-14) Blood Urea Nitrogen 15 mg/dL (7-20) Creatinine 0.9 mg/dL (0.6-1.0) Estimated GFR (Cockcroft-Gault) 59.8 Glucose Level 141 mg/dL (70-99) Calcium Level 9.0 mg/dL (8.5-10.1) Magnesium Level 1.8 mg/dL (1.8-2.4) Physical Exam HEENT: Neck Supple W Full Motion Chest: Symmetric LUNGS: Clear to Auscultation Heart: RRR Abdomen: Soft N/T, Other (obese) Extremities: No Edema Neurology: alert, oriented, follow commands Assessment Assessment 1. AFIB with RVR; new findings. Converted back to SR. Cardizem added. On low- dose Eliquis. 2. Chest pain, atypical. Most probably secondary to RVR. Resolved. Trop negative 3. CAD s/p CABG 4. Hypertension; now controlled 5. Hyperlipidemia; statin Recommendations Secondary prevention Continue Cardizem for rate control. Consider converting to metoprolol given h/o CAD Eliquis therapy Outpatient event monitor to assess AFIB burden, guide therapy Discharge arranged; will return to facility with Follow up with telehealth visit 07/13/20 at 10:15 as previously arranged. Justicifation of Admission Dx: Justifications for Admission: Justification of Admission Dx: Yes TBA DUMONT MD 06/07/20 1557: CARDIO Progress Notes Assessment Assessment Patient seen and examined AFIB with RVR; new findings. Converted back to SR. remains in sinus rhythm. Continue present medications. Outpatient monitor and follow-up. Chest pain, atypical. Most probably secondary to RVR. Resolved. Trop negative CAD s/p CABG Hypertension; now controlled Hyperlipidemia; statin FADI HANNA APRN Jun 07, 2020 12:04 TAB DUMONT MD Jun 07, 2020 15:57
[2020-06-07] MEDS ORDERED: APIX2.5T PO (13:37)
--- NOTE | 2020-06-07 13:39 | SNU/HH DC ---
DISCHARGE ORDERS DISCHARGE INFORMATION: DISCHARGE DATE: Jun 07, 2020 FINAL DIAGNOSIS Problems Medical Problems: (1) Atrial fibrillation with RVR Status: Acute (2) Chest pain Status: Acute CONDITION ON DISCHARGE: Stable CODE STATUS: Code Status: Full RESIDENTIAL: SNF STAY <30 DAYS: Yes HOSPICE: HOSPICE: No HOSPICE EVAL & TREAT: No POST DISCHARGE ORDERS: ACTIVITY ORDERS: Activity as tolerated WEIGHT BEARING STATUS: No restrictions DIET AFTER DISCHARGE: Cardiac WOUND/INCISION CARE: Keep wound/cast CDI TREATMENT/EQUIPMENT ORDERS: Physical Therapy For: Evalulation/Treatment Occupational Therapy For: Evaluation/Treatment DISCHARGE MEDICATIONS: Home Meds Active Scripts Levothyroxine Sodium (LEVOTHYROXINE SODIUM) 112 Mcg Tablet, 1 TAB PO DAILY for Hypothyroidism, #30 TAB 5 Refills Prov:PURVI LIU MD 10/31/19 Ondansetron Hcl (ZOFRAN) 4 Mg Tablet, 1 TAB PO Q6HRS for nausea, #20 TAB Prov:PURVI LIU MD 10/31/19 Cefdinir (CEFDINIR) 300 Mg Capsule, 1 CAP PO BID for UTI for 3 Days, #6 CAP Prov:PURVI LIU MD 10/31/19 Metronidazole (FLAGYL) 500 Mg Tablet, 500 MG PO TID for diverticulitis for 4 Days, #12 TAB Prov:PURVI LIU MD 10/31/19 Miconazole Nitrate (ANTIFUNGAL CREAM) 14 Gm Cream..g., 1 MERCEDES TP BID for antifungal for 10 Days, #20 EACH Prov:PURVI LIU MD 10/31/19 Lactobacillus Rhamnosus Gg (CULTURELLE) 1 Each Cap.sprink, 1 CAP PO BID for probiotics for 14 Days, #28 CAP Prov:PURVI LIU MD 10/31/19 Polyethylene Glycol 3350 (POLYETHYLENE GLYCOL 3350) 17 Gm Powd.pack, 17 GM PO QHS for constipation for 30 Days, #30 PKT Prov:PURVI LIU MD 10/31/19 Reported Medications Propylene Glycol/Peg 400 (SYSTANE 0.3-0.4% EYE DROPS) 15 Ml Drops, 1 DROP EACHEYE QID for comfort, #30 ML 5 Refills 10/28/19 Light Mineral Oil/Min Oil/Pf (RETAINE MGD EYE DROPS) 1 Each Droperette, 1 DROP EACHEYE QID for comfort for 30 Days, #60 VIAL 0 Refills 10/28/19 Nystatin (NYSTOP) 60 Gm Powder, 60 GM TP BID for affected skin, MISC 10/28/19 Cyclosporine (RESTASIS) 1 Each Droperette, 1 DROP EACHEYE BID for eye gtts, #60 VIAL 3 Refills 10/28/19 Lisinopril (LISINOPRIL) 5 Mg Tablet, 1 TAB PO DAILY for HTN, #30 TAB 5 Refills 10/28/19 Aspirin (ASPIRIN) 81 Mg Tab.chew, 1 TAB PO DAILY for antiplatelet, #30 TAB 3 Refills 10/28/19 Atorvastatin Calcium (ATORVASTATIN CALCIUM) 10 Mg Tablet, 10 MG PO HS for FOR CHOLESTEROL, #30 TAB 0 Refills 10/28/19 Celecoxib (CELEBREX) 100 Mg Capsule, 1 CAP PO BID for pain, #60 CAP 3 Refills 10/28/19 Donepezil Hcl (DONEPEZIL HCL) 23 Mg Tablet, 1 TAB PO QHS for dementia for 30 Days, #30 TAB 0 Refills 10/28/19 Bupropion Hcl (WELLBUTRIN SR) 150 Mg Tablet.er, 1 TAB PO BID, #60 TAB 5 Refills 10/21/15 Quetiapine Fumarate (SEROQUEL) 50 Mg Tablet, 1 TAB PO QHS, #30 TAB 2 Refills 10/21/15 Quetiapine Fumarate (SEROQUEL) 50 Mg Tablet, 1 TAB PO QHS, #30 TAB 2 Refills 10/21/15 Alprazolam (XANAX) 0.5 Mg Tablet, 1 TAB PO TID, #90 TAB 10/21/15 Magnesium Hydroxide (MILK OF MAGNESIA) 400 Mg/5 Ml Oral.susp, 400 MG PO DAILY 10/21/15 Docusate Sodium (DOCUSATE SODIUM) 100 Mg Capsule, 2 CAP PO DAILY for constipation, #30 CAP 10/21/15 Mirabegron (MYRBETRIQ) 50 Mg Tab.er.24h, 50 MG PO DAILY 10/21/15 YANNICK ECHEVARRIA MD Jun 07, 2020 13:39
[2020-06-07] MEDS: cycloSPORINE 0.05% OPHTH DROPERETTE. OU SCH (13:41)
--- NOTE | 2020-06-07 13:44 | PDOC3 ---
Discharge Summary Visit Information Date of Admission: Jun 04, 2020 Date of Discharge: Jun 07, 2020 Final Diagnosis Problems Medical Problems: (1) Atrial fibrillation with RVR Status: Acute (2) Chest pain Status: Acute Brief Hospital Course Allergies Allergies Coded Allergies Type Severity Reaction Last Updated Verified Sulfa (Sulfonamide Antibiotics) Allergy Intermediate Rash 06/05/20 Yes Vital Signs Vital Signs Date Time Temp Pulse Resp B/P (MAP) Pulse Ox O2 Delivery O2 Flow Rate FiO2 06/07/20 10:55 98.2 93 18 109/64 (79) 94 Room Air 98.2 Lab Results Laboratory Tests Test 06/07/20 08:50 White Blood Count 6.3 x10^3/uL (4.0-11.0) Red Blood Count 4.53 x10^6/uL (3.50-5.40) Hemoglobin 14.5 g/dL (12.0-15.5) Hematocrit 42.9 % (36.0-47.0) Mean Corpuscular Volume 95 fL (79-100) Mean Corpuscular Hemoglobin 32 pg (25-35) Mean Corpuscular Hemoglobin Concent 34 g/dL (31-37) Red Cell Distribution Width 13.6 % (11.5-14.5) Platelet Count 195 x10^3/uL (140-400) Neutrophils (%) (Auto) 64 % (31-73) Lymphocytes (%) (Auto) 28 % (24-48) Monocytes (%) (Auto) 5 % (0-9) Eosinophils (%) (Auto) 2 % (0-3) Basophils (%) (Auto) 1 % (0-3) Neutrophils # (Auto) 4.0 x10^3/uL (1.8-7.7) Lymphocytes # (Auto) 1.8 x10^3/uL (1.0-4.8) Monocytes # (Auto) 0.3 x10^3/uL (0.0-1.1) Eosinophils # (Auto) 0.1 x10^3/uL (0.0-0.7) Basophils # (Auto) 0.1 x10^3/uL (0.0-0.2) Sodium Level 138 mmol/L (136-145) Potassium Level 4.2 mmol/L (3.5-5.1) Chloride Level 103 mmol/L (98-107) Carbon Dioxide Level 24 mmol/L (21-32) Anion Gap 11 (6-14) Blood Urea Nitrogen 15 mg/dL (7-20) Creatinine 0.9 mg/dL (0.6-1.0) Estimated GFR (Cockcroft-Gault) 59.8 Glucose Level 141 mg/dL (70-99) Calcium Level 9.0 mg/dL (8.5-10.1) Magnesium Level 1.8 mg/dL (1.8-2.4) Laboratory Tests Test 06/07/20 08:50 White Blood Count 6.3 x10^3/uL (4.0-11.0) Red Blood Count 4.53 x10^6/uL (3.50-5.40) Hemoglobin 14.5 g/dL (12.0-15.5) Hematocrit 42.9 % (36.0-47.0) Mean Corpuscular Volume 95 fL (79-100) Mean Corpuscular Hemoglobin 32 pg (25-35) Mean Corpuscular Hemoglobin Concent 34 g/dL (31-37) Red Cell Distribution Width 13.6 % (11.5-14.5) Platelet Count 195 x10^3/uL (140-400) Neutrophils (%) (Auto) 64 % (31-73) Lymphocytes (%) (Auto) 28 % (24-48) Monocytes (%) (Auto) 5 % (0-9) Eosinophils (%) (Auto) 2 % (0-3) Basophils (%) (Auto) 1 % (0-3) Neutrophils # (Auto) 4.0 x10^3/uL (1.8-7.7) Lymphocytes # (Auto) 1.8 x10^3/uL (1.0-4.8) Monocytes # (Auto) 0.3 x10^3/uL (0.0-1.1) Eosinophils # (Auto) 0.1 x10^3/uL (0.0-0.7) Basophils # (Auto) 0.1 x10^3/uL (0.0-0.2) Sodium Level 138 mmol/L (136-145) Potassium Level 4.2 mmol/L (3.5-5.1) Chloride Level 103 mmol/L (98-107) Carbon Dioxide Level 24 mmol/L (21-32) Anion Gap 11 (6-14) Blood Urea Nitrogen 15 mg/dL (7-20) Creatinine 0.9 mg/dL (0.6-1.0) Estimated GFR (Cockcroft-Gault) 59.8 Glucose Level 141 mg/dL (70-99) Calcium Level 9.0 mg/dL (8.5-10.1) Magnesium Level 1.8 mg/dL (1.8-2.4) Brief Hospital Course Ms. Vences is a 84 old female who presented with A. fib with RVR. Consultation was placed to cardiology. Patient was converted with IV diltiazem and transition to oral diltiazem. She was started on Eliquis for VTE prophylaxis. She was stable for discharge back to her half-way. Discharge Information Condition at Discharge: Stable Disposition/Orders: D/C to Another Facility Scheduled Alprazolam (Xanax) 0.5 Mg Tablet, 1 TAB PO TID, #90 (Reported) Entered as Reported by: GONZÁLEZ SALMON on 10/21/15752 Last Action: Continued on 06/05/20 1426 by GOLDEN JONES Apixaban (Eliquis) 2.5 Mg Tablet, 2.5 MG PO BID for A fib, #30 Ref 2 Prescribed by: YANNICK ECHEVARRIA MD on 06/07/20 1337 Aspirin (Aspirin) 81 Mg Tab.chew, 1 TAB PO DAILY for antiplatelet, #30 Ref 3 (Reported) Entered as Reported by: CELE BRYSON on 10/28/192103 Last Action: Continued on 06/06/20 1034 by PURVI LIU MD Atorvastatin Calcium (Atorvastatin Calcium) 10 Mg Tablet, 10 MG PO HS for FOR CHOLESTEROL, #30 Ref 0 (Reported) Entered as Reported by: CELE BRYSON on 10/28/192103 Last Action: Continued on 06/04/20 163 by JAMAAL GARNER MD Bupropion Hcl (Wellbutrin Sr) 150 Mg Tablet.er, 1 TAB PO BID, #60 Ref 5 (Reported) Entered as Reported by: GONZÁLEZ SALMON on 10/21/15752 Last Action: Continued on 06/04/20 163 by JAMAAL GARNER MD Cyclosporine (Restasis) 1 Each Droperette, 1 DROP EACHEYE BID for eye gtts, #60 Ref 3 (Reported) Entered as Reported by: CELE BRYSON on 10/28/192103 Last Action: Continued on 06/06/201033 by PURVI LIU MD Docusate Sodium (Docusate Sodium) 100 Mg Capsule, 2 CAP PO DAILY for constipation, #30 (Reported) Entered as Reported by: GONZÁLEZ SALMON on 10/21/15 0753 Last Action: Continued on 06/04/201634 by JAMAAL GARNER MD Donepezil Hcl (Donepezil Hcl) 23 Mg Tablet, 1 TAB PO QHS for dementia for 30 Days, #30 Ref 0 (Reported) Entered as Reported by: CELE BRYSON on 10/28/192103 Last Action: Converted on 06/06/201033 by PURVI LIU MD Lactobacillus Rhamnosus Gg (Culturelle) 1 Each Cap.sprink, 1 CAP PO BID for probiotics for 14 Days, #28 Prescribed by: PURVI LIU MD on 10/31/19 0811 Last Action: Continued on 06/04/201634 by JAMAAL GARNER MD Levothyroxine Sodium (Levothyroxine Sodium) 112 Mcg Tablet, 1 TAB PO DAILY for Hypothyroidism, #30 Ref 5 Prescribed by: PURVI LIU MD on 10/31/19 0818 Last Action: Continued on 06/04/201634 by JAMAAL GARNER MD Light Mineral Oil/Min Oil/Pf (Retaine Mgd Eye Drops) 1 Each Droperette, 1 DROP EACHEYE QID for comfort for 30 Days, #60 Ref 0 (Reported) Entered as Reported by: CELE BRYSON on 10/28/192103 Last Action: Converted on 06/06/201033 by PURVI LIU MD Lisinopril (Lisinopril) 5 Mg Tablet, 1 TAB PO DAILY for HTN, #30 Ref 5 (Reported ) Entered as Reported by: CELE BRYSON on 10/28/192103 Last Action: Continued on 06/04/201634 by JAMAAL GARNER MD Miconazole Nitrate (Antifungal Cream) 14 Gm Cream..g., 1 MERCEDES TP BID for antifungal for 10 Days, #20 Prescribed by: PURVI LIU MD on 10/31/19 0811 Last Action: Continued on 06/06/201033 by PURVI LIU MD Mirabegron (Myrbetriq) 50 Mg Tab.er.24h, 50 MG PO DAILY, (Reported) Entered as Reported by: GONZÁLEZ SALMON on 10/21/15752 Last Action: Converted on 06/04/201634 by JAMAAL GARNER MD Nystatin (Nystop) 60 Gm Powder, 60 GM TP BID for affected skin, (Reported) Entered as Reported by: CELE BRYSON on 10/28/192103 Last Action: Continued on 06/06/201033 by PURVI LIU MD Ondansetron Hcl (Zofran) 4 Mg Tablet, 1 TAB PO Q6HRS for nausea, #20 Prescribed by: PURVI LIU MD on 10/31/19816 Last Action: Converted on 06/06/201033 by PURVI LIU MD Polyethylene Glycol 3350 (Polyethylene Glycol 3350) 17 Gm Powd.pack, 17 GM PO QHS for constipation for 30 Days, #30 Prescribed by: PURVI LIU MD on 10/31/19810 Last Action: Continued on 06/04/201634 by JAMAAL GARNER MD Propylene Glycol/Peg 400 (Systane 0.3-0.4% Eye Drops) 15 Ml Drops, 1 DROP EACHEYE QID for comfort, #30 Ref 5 (Reported) Entered as Reported by: CELE BRYSON on 10/28/192103 Last Action: Converted on 06/06/201033 by PURVI LIU MD Quetiapine Fumarate (Seroquel) 50 Mg Tablet, 1 TAB PO QHS, #30 Ref 2 (Reported) Entered as Reported by: GONZÁLEZ SALMON on 10/21/15752 Last Action: Converted on 06/04/201634 by JAMAAL GARNER MD Discontinued Medications Cefdinir (Cefdinir) 300 Mg Capsule, 1 CAP PO BID for UTI for 3 Days, #6 Prescribed by: PURVI LIU MD on 10/31/19810 Last Action: HELD on 06/04/201634 by JAMAAL GARNER MD Celecoxib (Celebrex) 100 Mg Capsule, 1 CAP PO BID for pain, #60 Ref 3 (Reported) Entered as Reported by: CELE BRYSON on 10/28/192103 Last Action: Continued on 06/06/201033 by PURVI LIU MD Magnesium Hydroxide (Milk Of Magnesia) 400 Mg/5 Ml Oral.susp, 400 MG PO DAILY, (Reported) Entered as Reported by: GONZÁLEZ SALMON on 10/21/15 0753 Last Action: Continued on 06/06/20 1034 by PURVI LIU MD Metronidazole (Flagyl) 500 Mg Tablet, 500 MG PO TID for diverticulitis for 4 Days, #12 Prescribed by: PURVI LIU MD on 10/31/19 0811 Last Action: HELD on 06/04/20 1635 by JAMAAL GARNER MD Quetiapine Fumarate (Seroquel) 50 Mg Tablet, 1 TAB PO QHS, #30 Ref 2 (Reported) Entered as Reported by: GONZÁLEZ SALMON on 10/21/15 075 Last Action: Converted on 06/06/20 103 by PURVI LIU MD Justicifation of Admission Dx: Justifications for Admission: Justification of Admission Dx: Yes YANNICK ECHEVARRIA MD Jun 07, 2020 13:44
--- NOTE | 2020-06-07 14:13 | NUR ---
SS following up with discharge planning. Discharge orders received return to [facility] [place], ; fax [phone], with home healthcare. SS phoned and faxed discharge orders to [facility]. SS phoned and faxed discharge orders and referral to [facility], ; fax [phone]. Pt will discharge today between 1600 and 1630 via [facility]. Pt's RN notified. SS left voicemail for pt's daughter.
[2020-06-07 14:34] VITALS: BP 125/52
--- NOTE | 2020-06-07 17:09 | NUR ---
Discharge Note: KAYLAANDREW [address] [place] Discharge instructions and discharge home medications reviewed with Patient and a copy given. All questions have been answered and understanding verbalized. The following instructions and handouts were given: atrial fibrilation, symptoms worsening, eliquis. Discontinued lines and drains: peripheral iv discontinued. Patient discharged to [facility] facility with home health.
== END 2020-06-07 17:15 | disposition home health service (06) | DRG 309 ==
LOC: ER 13:39 → 2 NORTH 17:18
PROVIDERS: ADMIT Internal Medicine; ATTEND Internal Medicine
DX: I48.91 Unspecified atrial fibrillation (principal); E87.1 Hypo-osmolality and hyponatremia; E86.0 Dehydration; K59.00 Constipation, unspecified; R07.89 Other chest pain; D75.1 Secondary polycythemia; R19.7 Diarrhea, unspecified; E03.9 Hypothyroidism, unspecified; E11.9 Type 2 diabetes mellitus without complications; E66.01 Morbid (severe) obesity due to excess calories; E78.00 Pure hypercholesterolemia, unspecified; E78.5 Hyperlipidemia, unspecified; E87.5 Hyperkalemia; F03.90 Unspecified dementia, unspecified severity, without behavioral disturbance, psychotic disturbance, mood disturbance, and anxiety; I10 Essential (primary) hypertension; I25.10 Atherosclerotic heart disease of native coronary artery without angina pectoris; J45.909 Unspecified asthma, uncomplicated; Z79.01 Long term (current) use of anticoagulants; Z79.82 Long term (current) use of aspirin; Z79.899 Other long term (current) drug therapy; Z82.49 Family history of ischemic heart disease and other diseases of the circulatory system; Z87.891 Personal history of nicotine dependence; Z90.49 Acquired absence of other specified parts of digestive tract; Z95.1 Presence of aortocoronary bypass graft; F41.8 Other specified anxiety disorders; Z88.2 Allergy status to sulfonamides
CPT/HCPCS: 36415; 71045; 74018; 80048; 80076; 83690; 83735; 83880; 84100; 84443; 84484; 85025; 85610; 85730; 90471; 93005; 96374; J1650; J3475; J3490; J7030; 97110-GP; 97116-GP; 97530-GP; 97535-GO; 99285-25; G0378

== ENCOUNTER 2021-11-03 19:51 | Emergency (ER) | payer MEDICARE, BC ==
[~2021-11-03] VITALS: Ht 165.1 cm; Wt 104.6 kg
[~2021-11-03 19:51] MED LIST changes: +APIX2.5T PO; -CITA10TA4 PO; +CITA10TA5 PO; -LISI-338 PO; +LISI5TAB15 PO; -MICO14CR TP; +MICO14CR3 TP; +MIRA25TA PO; -MIRA50TA PO; -POLY17PO28 PO; +POLY17PO52 PO
--- NOTE | 2021-11-03 20:20 | PHYS DOC ---
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 Patient reports that she was leaning forward lost her balance and fell forward hitting the left side of her head. Patient reports that EMS did initially come out following the fall to evaluate her but at that time she does not want to be transported to the ambulance but called back later after experiencing pain. Patient rates her pain 6 out of 10. She is reporting most of her pain to left side of her head and her left knee. Patient denies loss of consciousness, nausea, vomiting, neck or back pain, hip or pelvis pain, saddle anesthesias, lower extremity paresthesias. Has hx of incontinence of bowel/bladder. Patient is on blood thinners for A. fib. Review of Systems: Review of Systems: Constitutional: negative unless reported in HPI Eyes: negative unless reported in HPI HENT: negative unless reported in HPI Respiratory: negative unless reported in HPI Cardiovascular: negative unless reported in HPI GI: negative unless reported in HPI : negative unless reported in HPI Musculoskeletal: negative unless reported in HPI Integument: negative unless reported in HPI Neurologic: negative unless reported in HPI Endocrine: negative unless reported in HPI Lymphatic: negative unless reported in HPI Psychiatric: negative unless reported in HPI Heart Score: C/O Chest Pain: N/A Risk Factors: Risk Factors: DM, Current or recent (<one month) smoker, HTN, HLP, family history of CAD, obesity. Risk Scores: Score 0 - 3: 2.5% MACE over next 6 weeks - Discharge Home Score 4 - 6: 20.3% MACE over next 6 weeks - Admit for Clinical Observation Score 7 - 10: 72.7% MACE over next 6 weeks - Early Invasive Strategies Allergies: Allergies: Allergies Coded Allergies Type Severity Reaction Last Updated Verified Sulfa (Sulfonamide Antibiotics) Allergy Intermediate Rash 06/05/20 Yes Physical Exam: PE: Constitutional: Well developed, well nourished, no acute distress, non-toxic appearance. [] HENT: Normocephalic, abrasion noted to left forehead proximal to the eyebrow, no spencer sign, no raccoon sign,, bilateral external ears normal, oropharynx moist, no oral exudates, nose normal. [] Eyes: PERRL, 4 mm bilaterally, EOMI, conjunctiva normal, no discharge. [] Neck: Normal range of motion, no bony spinal tenderness, left-sided paraspinal cervical tenderness with palpation, no step-offs or deformities, supple, no stridor. [] Cardiovascular:Heart rate regular rhythm, no murmur [] Lungs & Thorax: Bilateral breath sounds clear to auscultation [] Abdomen: Bowel sounds normal, soft, no tenderness, no masses, no pulsatile masses. [] Skin: Warm, dry, no erythema, no rash. [] Back: No bony spinal tenderness, normal range of motion Extremities: No tenderness, no cyanosis, no clubbing, ROM intact, no edema, no hip or pelvis pain with palpation. Left knee: Abrasion and erythema noted to anterior aspect of left knee, no crepitus, range of motion intact, neuro intact, patient able to bear weight. [] Neurologic: Alert and oriented X 3, normal motor function, normal sensory function, no focal deficits noted. [] Psychologic: Affect normal, judgement normal, mood normal. [] EKG: EKG: [] Radiology/Procedures: Radiology/Procedures: []PROCEDURE: KNEE LEFT 3V Exam: Left knee 3 views INDICATION: Fall TECHNIQUE: Frontal, lateral and oblique views of the left knee Comparisons: None FINDINGS: Bone mineralization is normal. No acute or healed fractures. Soft tissues are unremarkable. Joint spaces are well-maintained. IMPRESSION: No acute osseous abnormality. Electronically signed by: Niki Galeano MD (11/03/2021 9:11 PM) [facility] DICTATED and SIGNED BY: NIKI GALEANO MD DATE: 11/03/21 [id number] 0 PROCEDURE: CT HEAD AND CERVICAL SPINE WO Exam: CT head and cervical spine INDICATION: Fall, head injury, neck pain TECHNIQUE: Sequential axial images through the head and cervical spine were obtained without the administration of IV contrast. Exposure: One or more of the following in the visualized dose reduction techniques were utilized for this examination: 1. Automated exposure control 2. Adjustment of the MA and/or KV according to patient size 3. Use of iterative of reconstructive technique Comparisons: None FINDINGS: Head: No focal parenchymal lesion or hemorrhage is identified. There is no midline shift or sulcal effacement. Craniotomy changes at the right temporal region with underlying encephalomalacia. No acute vascular territory infarction is identified. Dudley- white distinction is preserved. The ventricular system is within normal limits without compression hydrocephalus. The basal cisterns are well maintained. The visualized portions of the paranasal sinuses and mastoid air cells are well-pneumatized. No acute fractures. Cervical spine: Straightening of the cervical spine which may positional. Vertebral body heights are well-maintained. Fracture to the cervical spine is not identified. Mild spondylotic change in cervical spine with degenerative disc disease greatest at C4-C5 and C5-C6. Facet arthropathy greater on the left in the mid cervical spine. Visualized paraspinal soft tissues are unremarkable. IMPRESSION: 1. No acute intracranial abnormality. 2. Negative CT C-spine for acute traumatic injury. Electronically signed by: Niki Galeano MD (11/03/2021 9:42 PM) [facility] DICTATED and SIGNED BY: NIKI GALEANO MD DATE: 11/03/21 [id number] 0 Course & Med Decision Making: Course & Med Decision Making Pertinent Labs and Imaging studies reviewed. (See chart for details) [] Patient presents to the emergency department following a fall. Patient reports that she leaned for loss of balance and fell forward hitting her left head and left knee. Imaging performed of patient's head and neck and left knee. Imaging of the knee, head and neck showed no acute findings. Patient's pain was treated. Patient's knee was placed in Jr wrap. Patient educated on the rice protocol. Patient advised to take Tylenol at home follow-up with her primary care provider. I discussed with patient all findings and diagnostic testing as well as the need to follow-up with PCP for further evaluation and treatment or return to the ER if any new or worsening symptoms. Strict return precautions were also discussed at length. Patient voiced understanding and agreement with the plan. Patient is hemodynamically stable at the time of disposition. Dragon Disclaimer: Stefano Disclaimer: This electronic medical record was generated, in whole or in part, using a voice recognition dictation system. Departure Departure Impression: Primary Impression: Fall Qualified Codes: W19.XXXA - Unspecified fall, initial encounter Disposition: HOME / SELF CARE / HOMELESS Condition: GOOD Referrals: DEREK MOTA MD (PCP) Patient Instructions: Fall Prevention and Home Safety, Head Injury, Adult, RICE - Routine Care for Injuries Additional Instructions: You are seen in the emergency department following a fall. Imaging was performed of your head and neck which showed no acute findings. An x-ray was performed of your left knee that showed no acute fracture. Your pain will likely improve over time. Your symptoms may be improved by something called the rice protocol. This is rest, ice, compression, elevation. Please follow-up when doing intense exercises that may make the pain worse. Sometimes gentle stretching can provide relief, but be careful to injury. It is important to perform gentle range of motion exercises to prevent stiff joints and chronic pain. Use ice packs over the affected areas to help decrease your pain. For the first 24 hours you can apply ice 20 minutes on 20 minutes off for 4 times per day. Sometimes compression such as the use of an Jr wrap can help with the swelling. You may also elevate the affected area to help with the swelling. You can take Tylenol for any pain at home. Follow-up with your primary care provider tomorrow regarding your ER visit. Return to the emergency department if you develop worsening of your pain, inability to bear weight or walk, loss of bowel or bladder, numbness in your groin or down your legs, confusion, i ntractable nausea or vomiting, seizure-like activity, vision changes, decreased sensation in your extremities or any new or worsening concerns. DAVID HANNAH APRN Nov 03, 2021 20:20
--- NOTE | 2021-11-03 21:14 | RAD ---
Exam: Left knee 3 views INDICATION: Fall TECHNIQUE: Frontal, lateral and oblique views of the left knee Comparisons: None FINDINGS: Bone mineralization is normal. No acute or healed fractures. Soft tissues are unremarkable. Joint spa scott are well-maintained. IMPRESSION: No acute osseous abnormality. Electronically signed by: Niki Reyes MD (11/03/2021 9:11 PM) [facility]
--- NOTE | 2021-11-03 21:44 | RAD ---
Exam: CT head and cervical spine INDICATION: Fall, head injury, neck pain TECHNIQUE: Sequential axial images through the head and cervical spine were obtained without the admi nistration of IV contrast. Exposure: One or more of the following in the visualized dose reduction techniques were utilized for this examination: 1. Automated exposure control 2. Adjustment of the MA and/or KV according to patient size 3. Use of iterative of reconstructive technique Comparisons: None FINDINGS: Head: No focal parenchymal lesion or hemorrhage is identified. There is no midline shift or sulcal effaceme nt. Craniotomy changes at the right temporal region with underlying encephalomalacia. No acute vascular t erritory infarction is identified. Dudley-white distinction is preserved. The ventricular system is within normal limits without compression hydrocephalus. The basal cisterns are well maintained. The visualized portions of the paranasal sinuses and mastoid air cells are well-pneumatized. No acute fractures. Cervical spine: Straightening of the cervical spine which may positional. Vertebral body heights are well-maintained. Fracture to the cervical spine is not identified. Mild spondylotic change in cervical spine with degenerative disc disease greatest at C4-C5 and C5-C6. Facet arthropathy greater on the left in the mid cervical spine. Visualized paraspinal soft tissues are unremarkable. IMPRESSION: 1. No acute intracranial abnormality. 2. Negative CT C-spine for acute traumatic injury. Electronically signed by: Niki Reyes MD (11/03/2021 9:42 PM) [facility]
[2021-11-03 22:31] VITALS: BP 173/72
[2021-11-03] MEDS ORDERED: ACETAMINOPHEN 325 MG TABLET. PO ONE (23:00)
== END 2021-11-03 23:10 | disposition home or self-care (01) ==
LOC: ER 19:51
DX: S00.81XA Abrasion of other part of head, initial encounter (principal); S80.212A Abrasion, left knee, initial encounter; R51.9 Headache, unspecified; M54.2 Cervicalgia; I48.91 Unspecified atrial fibrillation; J45.909 Unspecified asthma, uncomplicated; I25.10 Atherosclerotic heart disease of native coronary artery without angina pectoris; F03.90 Unspecified dementia, unspecified severity, without behavioral disturbance, psychotic disturbance, mood disturbance, and anxiety; E78.00 Pure hypercholesterolemia, unspecified; I10 Essential (primary) hypertension; E03.9 Hypothyroidism, unspecified; Z87.891 Personal history of nicotine dependence; Z95.1 Presence of aortocoronary bypass graft; Z88.2 Allergy status to sulfonamides; W18.09XA Striking against other object with subsequent fall, initial encounter; Y93.89 Activity, other specified; Y92.89 Other specified places as the place of occurrence of the external cause; Y99.8 Other external cause status
CPT/HCPCS: 70450; 72125; 73562; A6450; 99285-25